=== PATIENT | female | born 1965 | race Caucasian/White ===

== ENCOUNTER 2017-07-14 22:42 | Emergency (ER) | payer SELFPAY ==
[2017-07-14] MEDS ORDERED: NA CHLORIDE 0.9% 1,000 ML ONE (23:13)
[2017-07-14] MEDS ORDERED: MORPHINE 4 MG/ML SYR ONE (23:13)
[2017-07-14] MEDS ORDERED: PROMETHAZINE 25 MG/ML VIAL ONE (23:14)
[2017-07-14 23:31] LABS: Absolute Lymphocytes (CBC) 1.3 K/uL (0.7-4.9); Absolute Monocytes 0.9 K/uL (0.1-1.3); Absolute Neutrophil 6.5 K/uL (1.8-8.0); Basophils % 0.7 % (0-1.3); Eosinophils % 0.1 % (0-4.4); Hematocrit 41.3 % (36.0-45.0); Lymphocytes % 14.5 % (15.3-44.8); MCV 93.3 fL (80-100); MPV 6.4 fL (7.6-11.3); RBC Red Blood Cell Count 4.43 M/uL (3.86-4.86)
[2017-07-14 23:52] LABS: Albumin 4.4 g/dL (3.2-5.5); Bilirubin Direct 0.1 mg/dL (0-0.2); Bilirubin Total 1.9 mg/dL (0.3-1.2)
[2017-07-15 00:04] LABS: Urine Blood 1+ (NEG); Urine Glucose NEGATIVE (NEG); Urine Protein 2+ (NEG); Urine Specific Gravity >1.030 (1.005-1.030); Urine pH 5.5 (5.0-7.0)
[2017-07-15 00:11] LABS: Urine Bacteria 20-50 /HPF (<20); Urine Culture Reflex Order REFLEXED; Urine RBC <5 /HPF (NONE SEEN)
--- NOTE | 2017-07-15 02:20 | ER ---
Nurse's Notes [facility] Name: Jaelyn Jean Age: 52 yrs Sex: Female : 1965 Arrival Date: 07/14/2017 Time: 22:46 Bed 26 Private MD: Diagnosis: Urinary tract infection, site not specified;Vomiting Presentation: 07/14 22:46 Presenting complaint: EMS states: Pt. arrived by EMS c/o N/V x 7 days, painful rk2 urination, little urine out put today. Pt. also c/o of bilateral flank pain. Transition of care: patient was not received from another setting of care. Onset of symptoms was July 14, 2017. Risk Assessment: Do you want to hurt yourself or someone else? Patient reports no desire to harm self or others. Initial Sepsis Screen: Does the patient meet any 2 criteria? HR > 90 bpm. No. Patient's initial sepsis screen is negative. Does the patient have a suspected source of infection? No. Patient's initial sepsis screen is negative. Initial Sepsis Screen: Does the patient have a suspected source of infection? Yes: No. Patient's initial sepsis screen is negative. Care prior to arrival: Medication(s) given: Normal saline infusion, Phenergan, 12.5 mg, IV initiated. 18 GA, in the right antecubital area. 22:46 Method Of Arrival: EMS: [facility] 22:46 Acuity: SHAQU[place] 3 rk2 Triage Assessment: 22:52 General: Appears in no apparent distress. well developed, well nourished, Behavior is rk2 calm, cooperative. Pain: Complains of pain in back. MANAGER EPIC: 07/15 01:19 unk rk2 Historical: - Allergies: 00:03 PENICILLINS; rk2 - PMHx: 07/14 22:52 PE; Pancreatitis; rk2 22:54 ENDOCARDITIS; Depression; DVT; rk2 - Social history:: Smoking status: Patient uses tobacco products, smokes one pack cigarettes per day. - Ebola Screening: : Patient negative for fever greater than or equal to 101.5 degrees Fahrenheit, and additional compatible Ebola Virus Disease symptoms. Screenin/28 00:02 Abuse screen: Denies threats or abuse. Nutritional screening: No deficits noted. rk2 Tuberculosis screening: No symptoms or risk factors identified. Fall Risk None identified. Assessment: 00:00 Reassessment: Patient appears in no apparent distress at this time. No changes from rk2 previously documented assessment. Patient and/or family updated on plan of care and expected duration. Pain level reassessed. No needs voiced \T\ this time. 01:18 Reassessment: Patient appears in no apparent distress at this time. No changes from rk2 previously documented assessment. Patient and/or family updated on plan of care and expected duration. Pain level reassessed. Pt. sleeping in room. No needs voiced. 02:45 Reassessment: Pt. was given water for PO challenge... per pt. she vomited water back rk2 up. Provider notified. 04:15 Reassessment: Patient is alert, oriented x 3, equal unlabored respirations, skin bb warm/dry/pink. pt verbalized understanding of and agrees to plan of care discharge instructions given pt assisted to exit via wheelchair awaiting ride home. Pt has not vomited since administration of Zofran. Vital Signs: 07/14 22:49 BP 143 / ???; Pulse 86; Resp 17; Temp 99.1(O); Pulse Ox 99% ; rk2 07/15 01:00 BP 102 / 62; Pulse 87; Resp 16; Pulse Ox 95% on R/A; rk2 01:40 BP 112 / 69; Pulse 88; Resp 16; Pulse Ox 95% on R/A; rk2 02:26 BP 117 / 75; Pulse 85; Resp 16; Pulse Ox 95% on R/A; rk2 04:17 BP 116 / 74; Pulse 85; Resp 16 S; Temp 97.9; Pulse Ox 96% on R/A; bb ED Course: 07/14 22:46 Patient arrived in ED. rk2 22:49 Triage completed. rk2 22:49 Arm band placed on. rk2 22:53 Lakesha Esqueda, FIONA is Primary Nurse. rk2 22:54 Ignacio Calero NP is PHCP. pm1 22:54 Juvencio Aguilar MD is Attending Physician. pm1 07/15 00:02 Patient has correct armband on for positive identification. Bed in low position. Call rk2 light in reach. Side rails up X2. 01:00 CT Abd/Pelvis - W/Contrast Sent. rk2 01:00 Urine Culture Sent. rk2 01:11 CT completed. Patient tolerated procedure well. Patient moved to CT via stretcher. Patient moved back from CT. 01:23 CT Abd/Pelvis - W/Contrast In Process Unspecified. EDMS 03:54 No provider procedures requiring assistance completed. bb 04:17 IV discontinued, intact, bleeding controlled, No redness/swelling at site. Pressure bb dressing applied. Administered Medications: 07/14 23:25 Drug: morphine 4 mg Route: IVP; Site: right antecubital; rk2 07/15 02:19 Follow up: Response: No adverse reaction rk2 07/14 23:26 Drug: NS 0.9% 1000 ml Route: IV; Rate: 1000 ml; Site: right antecubital; rk2 07/15 00:30 Follow up: Response: No adverse reaction; IV Status: Completed infusion rk2 07/14 23:26 Drug: Phenergan 12.5 mg Route: IVP; Site: right antecubital; rk2 07/15 02:19 Follow up: Response: No adverse reaction rk2 02:20 Not Given (cancelled by provider): NS 0.9% 1000 ml IV at 1000 ml once rk2 02:26 Drug: Rocephin 1 grams Route: IV; Rate: calculated rate; Site: right antecubital; rk2 02:33 Follow up: IV Status: Completed infusion; IV Intake: 10ml bb 02:35 Follow up: given \T\ DC rk2 02:39 CANCELLED (Duplicate Order): Rocephin 1 grams IV at calculated rate once; Given slow IV bb push per pharmacy instructions 03:07 Drug: Zofran 4 mg Route: IVP; Site: right antecubital; rk2 03:55 Follow up: Response: No adverse reaction bb 03:19 Not Given (Physician Discretion): morphine 4 mg IVP once bb Intake: 02:33 IV: 10ml; Total: 10ml. bb Outcome: 02:19 Discharge ordered by . pm1 04:17 Discharged to home via wheelchair. bb 04:17 Condition: stable 04:17 Discharge instructions given to patient, Instructed on discharge instructions, follow up and referral plans. medication usage, Demonstrated understanding of instructions, follow-up care, medications, Prescriptions given X 4. 04:19 Patient left the ED. bb Signatures: Dispatcher [employer] EDUT Trever Newton Rommel, Amrita, FIONA RN bb Ignacio Calero, DIRECTOR AUDIENCE MARKETING DIRECTOR AUDIENCE MARKETING pm1 Lakesha Esqueda RN RN rk2
--- NOTE | 2017-07-15 02:20 | EDPHYS ---
Physician Documentation [facility] Name: Jaelyn Jean Age: 52 yrs Sex: Female : 1965 Arrival Date: 07/14/2017 Time: 22:46 Bed 26 Private MD: ED Physician Juvencio Aguilar HPI: 07/15 00:00 This 52 yrs old Female presents to ER via EMS with complaints of pm1 Nausea/Vomiting, burning with urination. 00:00 The patient complains of pain in the left low back and right low back. The pain does pm1 not radiate. Onset: The symptoms/episode began/occurred 1 week(s) ago. Modifying factors: The symptoms are alleviated by nothing. the symptoms are aggravated by burning with urination. Associated signs and symptoms: Pertinent positives: nausea, vomiting, Pertinent negatives: fever. Severity of pain: in the emergency department the pain is actually worse. The patient has experienced a previous episode, many years ago. The patient has not recently seen a physician, and does not have an established primary care provider. Patient with burning with nausea and vomiting for 1 week. 3 days of burning with urination and flank pain bilaterally. no fevers. 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 - Ebola Screening: : Patient negative for fever greater than or equal to 101.5 degrees Fahrenheit, and additional compatible Ebola Virus Disease symptoms. ROS: 07/15 00:00 Constitutional: Negative for fever, chills, and weight loss, Eyes: Negative for injury, pm1 pain, redness, and discharge, ENT: Negative for injury, pain, and discharge, Neck: Negative for injury, pain, and swelling, Cardiovascular: Negative for chest pain, palpitations, and edema, Respiratory: Negative for shortness of breath, cough, wheezing, and pleuritic chest pain. : Negative for injury, bleeding, discharge, and swelling, MS/Extremity: Negative for injury and deformity, Skin: Negative for injury, rash, and discoloration, Neuro: Negative for headache, weakness, numbness, tingling, and seizure. Abdomen/GI: Positive for nausea and vomiting, Negative for abdominal pain, diarrhea. Back: Positive for flank pain, bilaterally. Exam: 00:00 Constitutional: This is a well developed, well nourished patient who is awake, alert, pm1 and in no acute distress. Head/Face: Normocephalic, atraumatic. Eyes: Pupils equal round and reactive to light, extra-ocular motions intact. Lids and lashes normal. Conjunctiva and sclera are non-icteric and not injected. Cornea within normal limits. Periorbital areas with no swelling, redness, or edema. ENT: Nares patent. No nasal discharge, no septal abnormalities noted. Tympanic membranes are normal and external auditory canals are clear. Oropharynx with no redness, swelling, or masses, exudates, or evidence of obstruction, uvula midline. Mucous membranes moist. Neck: Trachea midline, no thyromegaly or masses palpated, and no cervical lymphadenopathy. Supple, full range of motion without nuchal rigidity, or vertebral point tenderness. No Meningismus. Chest/axilla: Normal chest wall appearance and motion. Nontender with no deformity. No lesions are appreciated. Cardiovascular: Regular rate and rhythm with a normal S1 and S2. No gallops, murmurs, or rubs. Normal PMI, no JVD. No pulse deficits. Respiratory: Lungs have equal breath sounds bilaterally, clear to auscultation and percussion. No rales, rhonchi or wheezes noted. No increased work of breathing, no retractions or nasal flaring. 00:00 Skin: Warm, dry with normal turgor. Normal color with no rashes, no lesions, and no evidence of cellulitis. MS/ Extremity: Pulses equal, no cyanosis. Neurovascular intact. Full, normal range of motion. 00:00 Abdomen/GI: Inspection: abdomen appears normal, Bowel sounds: normal, Palpation: abdomen is soft and non-tender. 00:00 Back: CVA tenderness, that is mild, is noted bilaterally. 00:00 Neuro: Orientation: is normal, Motor: is normal, moves all fours. Vital Signs: 07/14 22:49 BP 143 / ???; Pulse 86; Resp 17; Temp 99.1(O); Pulse Ox 99% ; rk2 07/15 01:00 BP 102 / 62; Pulse 87; Resp 16; Pulse Ox 95% on R/A; rk2 01:40 BP 112 / 69; Pulse 88; Resp 16; Pulse Ox 95% on R/A; rk2 02:26 BP 117 / 75; Pulse 85; Resp 16; Pulse Ox 95% on R/A; rk2 04:17 BP 116 / 74; Pulse 85; Resp 16 S; Temp 97.9; Pulse Ox 96% on R/A; bb MDM: 07/14 22:55 Patient medically screened. pm1 07/15 02:10 Differential diagnosis: gastritis, pancreatitis, viral gastroenteritis, pyelonephritis, pm1 cystitis. 02:18 Data reviewed: vital signs. Counseling: I had a detailed discussion with the patient pm1 and/or guardian regarding: the historical points, exam findings, and any diagnostic results supporting the discharge/admit diagnosis, lab results, radiology results, the need for outpatient follow up, to return to the emergency department if symptoms worsen or persist or if there are any questions or concerns that arise at home. 07/14 23:11 Order name: Basic Metabolic Panel; Complete Time: 01: pm07/14 23:11 Order name: CBC with Diff; Complete Time: : pm07/14 23:11 Order name: Creatinine for Radiology; Complete Time: : pm07/14 23:11 Order name: Hepatic Function; Complete Time: : pm07/14 23:11 Order name: Lipase; Complete Time: 01: 07/14 23:11 Order name: Urine Microscopic Only; Complete Time: 01: 07/14 23:11 Order name: CT Abd/Pelvis - W/Contrast [facility] 07/14 23:36 Order name: Urine Dipstick--Ancillary (enter results); Complete Time: 01: [facility] 07/14 23:36 Order name: Urine --Ancillary (enter results); Complete Time: : [facility] 07/15 00:13 Order name: Urine Culture [facility] 07/14 23:11 Order name: Urine Test (obtain specimen); Complete Time: 23:26 pm07/14 23:11 Order name: IV Saline Lock; Complete Time: 23: pm07/14 23:11 Order name: Labs collected and sent; Complete Time: 23: pm07/14 23:11 Order name: Urine Dipstick-Ancillary (obtain specimen); Complete Time: 23:26 pm1 Administered Medications: 07/14 23:25 Drug: morphine 4 mg Route: IVP; Site: right antecubital; rk2 07/15 02:19 Follow up: Response: No adverse reaction rk2 07/14 23:26 Drug: NS 0.9% 1000 ml Route: IV; Rate: 1000 ml; Site: right antecubital; rk2 07/15 00:30 Follow up: Response: No adverse reaction; IV Status: Completed infusion rk2 07/14 23:26 Drug: Phenergan 12.5 mg Route: IVP; Site: right antecubital; rk2 07/15 02:19 Follow up: Response: No adverse reaction rk2 02:20 Not Given (cancelled by provider): NS 0.9% 1000 ml IV at 1000 ml once rk2 02:26 Drug: Rocephin 1 grams Route: IV; Rate: calculated rate; Site: right antecubital; rk2 02:33 Follow up: IV Status: Completed infusion; IV Intake: 10ml bb 02:35 Follow up: given \T\ DC rk2 02:39 CANCELLED (Duplicate Order): Rocephin 1 grams IV at calculated rate once; Given slow IV bb push per pharmacy instructions 03:07 Drug: Zofran 4 mg Route: IVP; Site: right antecubital; rk2 03:55 Follow up: Response: No adverse reaction bb 03:19 Not Given (Physician Discretion): morphine 4 mg IVP once bb Disposition: 07/15/17 02:19 Discharged to Home. Impression: Urinary tract infection, site not specified, Vomiting. - Condition is Stable. - Discharge Instructions: Nausea and Vomiting, Urinary Tract Infection. - Prescriptions for Tylenol- Codeine #3 300-30 mg Oral Tablet - take 2 tablets by ORAL route every 6 hours As needed; 20 tablet. Bactrim DS 800- 160 mg Oral Tablet - take 1 tablet by ORAL route every 12 hours for 10 days; 20 tablet. Zofran 4 mg Oral Tablet - take 1 tablet by ORAL route every 12 hours As needed; 20 tablet. Phenergan 25 mg Rectal Suppository - insert 1 suppository by RECTAL route every 6 hours As needed; 12 suppository. - Medication Reconciliation Form, Thank You Letter, Antibiotic Education form. - Follow up: Emergency Department; When: As needed; Reason: Worsening of condition. Follow up: Private Physician; When: 2 - 3 days; Reason: Recheck today's complaints, Continuance of care, Re-evaluation by your physician. - Problem is new. - Symptoms have improved. Addendum: 07/18/2017 09:03 Co-signature as Attending Physician, Juvencio Aguilar MD I agree with the assessment and w a plan of care. Signatures: Dispatcher [employer] EDMS Amrita Carney, RN RN bb Ignacio Calero, MICA MACHINE OPERATOR MICA MACHINE OPERATOR pm1 Juvencio Aguilar MD MD wa Kidder, Rhonda RN RN rk2 Corrections: (The following items were deleted from the chart) 07/15 02:39 02:39 Rocephin 1 grams IV at calculated rate once; Given slow IV push per pharmacy bb instructions ordered. bb 04:19 02:19 07/15/2017 02:19 Discharged to Home. Impression: Urinary tract infection, site bb not specified; Vomiting. Condition is Stable. Forms are Medication Reconciliation Form, Thank You Letter, Antibiotic Education, Prescription Opioid Use. Follow up: Emergency Department; When: As needed; Reason: Worsening of condition. Follow up: Private Physician; When: 2 - 3 days; Reason: Recheck today's complaints, Continuance of care, Re-evaluation by your physician. Problem is new. Symptoms have improved. pm1
[2017-07-15] MEDS ORDERED: CEFTRIAXONE/SWI 1gm 1 GM/10 ML SYR ONE (02:25)
[2017-07-15] MEDS ORDERED: ONDANSETRON 4 MG/2 ML VIAL ONE (03:05)
[2017-07-15 04:29] VITALS: BP 116/74; TEMP 97.9; O2SAT 96
--- NOTE | 2017-07-15 08:58 | RAD REPORT ---
EXAM DESCRIPTION: CT - Abdomen Pelvis W Contrast - 07/15/2017 3:16 am CLINICAL HISTORY: Bilateral flank pain, nausea, vomiting, dysuria, prior history of pancreatitis in DVT A preliminary written report was provided at the time of the study, and the report was reviewed prio r to final dictation. COMPARISON: CT November 2015 TECHNIQUE: Biphasic, helical CT imaging of the abdomen and pelvis was performed following 100 ml non -ionic IV contrast. No oral contrast given. All CT scans are performed using dose optimization technique as appropriate and may include automated exposure control or mA/KV adjustment according to patient size. FINDINGS: No suspicious findings in the lung bases. Liver shows diffuse fatty infiltration pattern no focal liver lesion. Spleen and pancreas show no hima picious findings. Gallbladder and biliary tree are also without suspicious finding. Gallstones can be occult. Symmetric renal function is seen with no hydronephrosis or suspicious renal mass. No pyelonephritis o r acute renal parenchymal process. No urinary bladder wall thickening or enhancement. Uterus and ovar ies show no suspicious findings. No adrenal abnormality. No dilated bowel loops or bowel wall thickening. No acute GI process seen. No free air, free fluid or inflammatory stranding. No hernia, mass or bulky lymphadenopathy. No suspicious bony findings. IMPRESSION: No pyelonephritis, obstructing calculus or acute finding identified. Diffuse fatty infiltration of the liver. No abnormality seen to explain the flank pain and dysuria symptoms.
== END 2017-07-15 04:19 | disposition home or self-care (01) ==
LOC: ER 22:42
DX: N39.0 Urinary tract infection, site not specified (principal); F17.210 Nicotine dependence, cigarettes, uncomplicated; Z88.0 Allergy status to penicillin
CPT/HCPCS: 36415; 74177; 80048; 80076; 81003; 81015; 81025; 83690; 85025; 87086; 87088; 96361; 96374; 96375; 99284; J0696; J2405; J2550; J7030; Q9967

== ENCOUNTER 2018-01-26 01:00 | Inpatient (IN) | payer BC, SELFPAY ==
[2018-01-26 01:49] LABS: Absolute Lymphocytes (CBC) 1.7 K/uL (0.7-4.9); Absolute Monocytes 0.9 K/uL (0.1-1.3); Basophils % 0.3 % (0-1.3); Eosinophils % 0.6 % (0-4.4); Hematocrit 44.4 % (36.0-45.0); MPV 6.6 fL (7.6-11.3); Monocytes % 10.7 % (3.3-12.3); RBC Red Blood Cell Count 4.49 M/uL (3.86-4.86)
[2018-01-26] MEDS ORDERED: KETOROLAC 30 MG/ML INJ ONE (01:51)
[2018-01-26] MEDS ORDERED: ONDANSETRON 4 MG/2 ML VIAL ONE ×2 (01:51→05:18)
[2018-01-26] MEDS ORDERED: NA CHLORIDE 0.9% 1,000 ML ONE ×2 (01:51→05:52)
[2018-01-26 02:06] LABS: Albumin 4.3 g/dL (3.4-5.0); Bilirubin Direct 0.3 mg/dL (0-0.2); Bilirubin Total 0.8 mg/dL (0.2-1.0); Potassium 4.2 mmol/L (3.5-5.1); Protein, Total 8.5 g/dL (6.4-8.2)
[2018-01-26] MEDS ORDERED: MORPHINE 4 MG/ML SYR ONE ×3 (02:28→05:52)
[2018-01-26] MEDS ORDERED: ACETAMINOPHEN 500 MG TAB PO PRN (05:48)
[2018-01-26 05:50] LABS: Urine Blood 2+ (NEG); Urine Glucose NEGATIVE (NEG); Urine Protein 2+ (NEG); Urine Specific Gravity 1.015 (1.005-1.030); Urine pH 5.5 (5.0-7.0)
[2018-01-26] MEDS ORDERED: NA CHLORIDE 0.9% 1,000 ML IV SCH (06:00)
--- NOTE | 2018-01-26 06:12 | ER ---
Nurse's Notes [facility] Name: Jaelyn Jean Age: 53 yrs Sex: Female : 1965 Arrival Date: 01/26/2018 Time: 01:04 Bed 20 Private MD: None, None Diagnosis: Acute pancreatitis Presentation: 01/26 01:19 Presenting complaint: Patient states: low back pain that radiates around abd w/N/V for aa1 past couple months and has progressively been getting worse. States, "I'm not sure what it is but I can tell that something isn't right.". Transition of care: patient was not received from another setting of care. Onset of symptoms was November 2017. Risk Assessment: Do you want to hurt yourself or someone else? Patient reports no desire to harm self or others. Initial Sepsis Screen: Does the patient meet any 2 criteria? HR > 90 bpm. Does the patient have a suspected source of infection? No. Patient's initial sepsis screen is negative. Care prior to arrival: None. 01:19 Method Of Arrival: Ambulatory aa1 01:19 Acuity: SHAQUILLE 3 aa1 Triage Assessment: 01:22 General: Appears in no apparent distress. uncomfortable, Behavior is calm, cooperative, aa1 appropriate for age. 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 - Social history:: Smoking status: Patient uses tobacco products, smokes one-half pack cigarettes per day. - Ebola Screening: : Patient denies exposure to infectious person Patient denies travel to an Ebola-affected area in the 21 days before illness onset. Screenin:30 Abuse screen: Denies threats or abuse. Nutritional screening: No deficits noted. jd3 Tuberculosis screening: No symptoms or risk factors identified. Fall Risk Ambulatory Aid- None/Bed Rest/Nurse Assist (0 pts). Gait- Normal/Bed Rest/Wheelchair (0 pts) Mental Status- Oriented to own ability (0 pts). Total Cutler Fall Scale indicates No Risk (0-24 pts). Assessment: 01:27 General: Appears in no apparent distress. uncomfortable, Behavior is cooperative, jd3 appropriate for age, anxious. Pain: Complains of pain in back and posterior aspect of left lateral abdomen Quality of pain is described as sharp, tender, Is continuous. Neuro: Level of Consciousness is awake, alert, obeys commands, Oriented to person, place, time, situation, Appropriate for age. Cardiovascular: Capillary refill < 3 seconds Patient's skin is warm and dry. Respiratory: Airway is patent Respiratory effort is even, unlabored, Respiratory pattern is regular, symmetrical. GI: Abdomen is round non-distended, Bowel sounds present X 4 quads. Abd is soft and non tender X 4 quads. Abdomen is tender to palpation in posterior aspect of right lateral abdomen and posterior aspect of left lateral abdomen Reports nausea, vomiting. : Reports burning with urination. EENT: No signs and/or symptoms were reported regarding the EENT system. Derm: Skin is intact, Skin is dry, Skin is normal, Skin temperature is warm. Musculoskeletal: Circulation, motion, and sensation intact. Range of motion: intact in all extremities. 02:13 Reassessment: Patient appears in no apparent distress at this time. Patient and/or jd3 family updated on plan of care and expected duration. Pain level reassessed. Patient is alert, oriented x 3, equal unlabored respirations, skin warm/dry/pink. 03:09 Reassessment: Patient appears in no apparent distress at this time. Patient and/or jd3 family updated on plan of care and expected duration. Pain level reassessed. Patient is alert, oriented x 3, equal unlabored respirations, skin warm/dry/pink. 04:32 Reassessment: Patient appears in no apparent distress at this time. Patient and/or jd3 family updated on plan of care and expected duration. Pain level reassessed. Patient is alert, oriented x 3, equal unlabored respirations, skin warm/dry/pink. 05:30 Reassessment: Patient appears in no apparent distress at this time. Patient and/or jd3 family updated on plan of care and expected duration. Pain level reassessed. Patient is alert, oriented x 3, equal unlabored respirations, skin warm/dry/pink. 06:47 Reassessment: Patient appears in no apparent distress at this time. Patient and/or jd3 family updated on plan of care and expected duration. Pain level reassessed. Patient is alert, oriented x 3, equal unlabored respirations, skin warm/dry/pink. 07:30 Reassessment: Patient appears in no apparent distress at this time. Patient and/or em family updated on plan of care and expected duration. Pain level reassessed. Patient is alert, oriented x 3, equal unlabored respirations, skin warm/dry/pink. Vital Signs: 01:22 BP 154 / 96; Pulse 126; Resp 18; Temp 98.3; Pulse Ox 97% on R/A; Weight 63.5 kg; Height aa1 5 ft. 1 in. (154.94 cm); Pain 8/10; 01:31 BP 134 / 88; Pulse 112; Resp 19 S; Pulse Ox 97% on R/A; jd3 02:14 BP 144 / 85; Pulse 92; Resp 18 S; Pulse Ox 98% on R/A; jd3 03:09 BP 115 / 74; Pulse 94; Resp 16 S; Pulse Ox 97% on R/A; jd3 04:32 BP 132 / 81; Pulse 81; Resp 16 S; Pulse Ox 96% on R/A; jd3 05:50 BP 124 / 75; Pulse 83; Resp 16 S; Pulse Ox 96% on R/A; jd3 06:47 BP 144 / 77; Pulse 82; Resp 17 S; Pulse Ox 95% on R/A; jd3 07:30 BP 137 / 82; Pulse 80; Resp 16; Pulse Ox 95% on R/A; Pain 7/10; em 01:22 Body Mass Index 26.45 (63.50 kg, 154.94 cm) aa1 ED Course: 01:04 Patient arrived in ED. dl4 01:04 None, None is Private Physician. dl4 01:21 Higinio Garza RN is Primary Nurse. jd3 01:22 Triage completed. aa1 01:23 Pascual Barillas MD is Attending Physician. ps1 01:30 Patient has correct armband on for positive identification. Bed in low position. Call jd3 light in reach. Side rails up X 1. 01:31 Arm band placed on. jd3 01:40 Inserted saline lock: 20 gauge in right forearm, using aseptic technique. Blood jd3 collected. 03:[address] via stretcher. kw1 03:18 CT Abd/Pelvis - W/Contrast In Process Unspecified. EDMS 03:20 CT completed. Patient tolerated procedure well. Patient moved back from CT. kw1 06:10 Pranay Simon MD is Hospitalizing Provider. ps1 06:48 No provider procedures requiring assistance completed. Patient admitted, IV remains in jd3 place. Administered Medications: 01:54 Drug: Zofran 4 mg Route: IVP; Site: right forearm; jd3 04:00 Follow up: Response: No adverse reaction jd3 01:54 Drug: TORadol 30 mg Route: IVP; Site: right forearm; jd3 04:00 Follow up: Response: No adverse reaction jd3 01:55 Drug: NS 0.9% 1000 ml Route: IV; Rate: 1 bolus; Site: right forearm; jd3 04:00 Follow up: Response: No adverse reaction; IV Status: Completed infusion; IV Intake: jd3 1000ml 02:23 Drug: morphine 4 mg Route: IVP; Site: right forearm; jd3 04:00 Follow up: Response: No adverse reaction jd3 04:00 Drug: morphine 4 mg Route: IVP; Site: right forearm; jd3 05:04 Follow up: Response: No adverse reaction jd3 05:15 Drug: Zofran 4 mg Route: IVP; Site: right forearm; jd3 05:50 Follow up: Response: No adverse reaction jd3 05:49 Drug: NS 0.9% 1000 ml Route: IV; Rate: 1 bolus; Site: right forearm; jd3 07:07 Follow up: IV Status: Completed infusion; IV Intake: 1000ml em 05:50 Drug: morphine 4 mg Route: IVP; Site: right forearm; jd3 06:47 Follow up: Response: No adverse reaction jd3 Intake: 04:00 IV: 1000ml; Total: 1000ml. jd3 07:07 IV: 1000ml; Total: 2000ml. em Outcome: 06:11 Decision to Hospitalize by Provider. ps1 08:09 Admitted to Med/surg accompanied by tech, via stretcher, room 210, with chart, Report em called to FIONA Whitehead 08:09 Condition: good 08:09 Instructed on the need for admit, Demonstrated understanding of instructions. 08:10 Patient left the ED. em Signatures: Dispatcher [employer] Lory Wilson RN RN aa1 Jose Loco LVN ASSEMBLER FOR PULLER OVER HAND Higinio Marlow RN RN jd3 Pascual Barillas MD MD ps1 Sarita Elliott kw1 Kade Toussaint dl4 Corrections: (The following items were deleted from the chart) 04:00 04:00 morphine 4 mg IVP in right antecubital yolanda guerrero
--- NOTE | 2018-01-26 06:12 | EDPHYS ---
Physician Documentation [facility] Name: Jaelyn Jean Age: 53 yrs Sex: Female : 1965 Arrival Date: 01/26/2018 Time: 01:04 Bed 20 Private MD: None, None ED Physician Pascual Barillas HPI: 01/26 04:49 This 53 yrs old Female presents to ER via Ambulatory with complaints of ps1 Abdominal Pain. 04:49 patient has a history of pancreatitis. Presenting with abdominal pain radiating to back ps1 and flanks. Onset was last couple of days. Pain rated as moderate. No remitting or exacerbating factors. . 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 - Social history:: Smoking status: Patient uses tobacco products, smokes one-half pack cigarettes per day. - Ebola Screening: : Patient denies exposure to infectious person Patient denies travel to an Ebola-affected area in the 21 days before illness onset. ROS: 04:52 Constitutional: Negative for fever, chills, and weight loss, Eyes: Negative for injury, ps1 pain, redness, and discharge, Cardiovascular: Negative for chest pain, palpitations, and edema, Respiratory: Negative for shortness of breath, cough, wheezing, and pleuritic chest pain, MS/Extremity: Negative for injury and deformity, Skin: Negative for injury, rash, and discoloration, Neuro: Negative for headache, weakness, numbness, tingling, and seizure. 04:52 Abdomen/GI: Positive for abdominal pain, nausea. Exam: 04:52 Constitutional: This is a well developed, well nourished patient who is awake, alert, ps1 and in no acute distress. Head/Face: Normocephalic, atraumatic. Eyes: Pupils equal round and reactive to light, extra-ocular motions intact. Lids and lashes normal. Conjunctiva and sclera are non-icteric and not injected. Chest/axilla: Normal chest wall appearance and motion. Nontender with no deformity. No lesions are appreciated. Cardiovascular: Regular rate and rhythm. No gallops, murmurs, or rubs. Normal PMI, no JVD. No pulse deficits. Respiratory: Lungs have equal breath sounds bilaterally, clear to auscultation and percussion. No rales, rhonchi or wheezes noted. No increased work of breathing, no retractions or nasal flaring. 04:52 MS/ Extremity: Pulses equal, no cyanosis. Neurovascular intact. Full, normal range of motion. Neuro: Awake and alert, GCS 15, oriented to person, place, time, and situation. Cranial nerves II-XII grossly intact. Sensory grossly intact. Psych: Awake, alert, with orientation to person, place and time. Behavior, mood, and affect are within normal limits. 04:52 Abdomen/GI: Inspection: abdomen appears normal, Bowel sounds: normal, Palpation: moderate abdominal tenderness, in the epigastric area. Vital Signs: 01:22 BP 154 / 96; Pulse 126; Resp 18; Temp 98.3; Pulse Ox 97% on R/A; Weight 63.5 kg; Height aa1 5 ft. 1 in. (154.94 cm); Pain 8/10; 01:31 BP 134 / 88; Pulse 112; Resp 19 S; Pulse Ox 97% on R/A; jd3 02:14 BP 144 / 85; Pulse 92; Resp 18 S; Pulse Ox 98% on R/A; jd3 03:09 BP 115 / 74; Pulse 94; Resp 16 S; Pulse Ox 97% on R/A; jd3 04:32 BP 132 / 81; Pulse 81; Resp 16 S; Pulse Ox 96% on R/A; jd3 05:50 BP 124 / 75; Pulse 83; Resp 16 S; Pulse Ox 96% on R/A; jd3 06:47 BP 144 / 77; Pulse 82; Resp 17 S; Pulse Ox 95% on R/A; jd3 07:30 BP 137 / 82; Pulse 80; Resp 16; Pulse Ox 95% on R/A; Pain 7/10; em 01:22 Body Mass Index 26.45 (63.50 kg, 154.94 cm) aa1 MDM: 02:03 Patient medically screened. ps1 04:52 Data reviewed: vital signs, nurses notes, lab test result(s), radiologic studies, and ps1 as a result, I will continue to observe the patient. 01/26 01:24 Order name: CBC with Diff; Complete Time: 02:03 ps1 01/26 01:24 Order name: Hepatic Function; Complete Time: 02:18 ps1 01/26 01:24 Order name: Lipase; Complete Time: 02:18 ps1 01/26 01:24 Order name: CMP; Complete Time: 02:18 ps1 01/26 05:13 Order name: Urine Dipstick--Ancillary (enter results); Complete Time: 05:56 ar5 01/26 05:52 Order name: CBC with Automated Diff EDMS 01/26 05:52 Order name: CBC with Automated Diff EDMS 01/26 05:52 Order name: Comprehensive Metabolic Panel EDMS 01/26 05:52 Order name: Comprehensive Metabolic Panel EDDE 01/26 05:52 Order name: Lipid Profile EDDE 01/26 05:52 Order name: CBC with Automated Diff EDMS 01/26 05:52 Order name: Comprehensive Metabolic Panel EDDE 01/26 01:25 Order name: CT Abd/Pelvis - W/Contrast [facility] 01/26 05:52 Order name: CONS Pharmacy Consult EDDE 01/26 05:52 Order name: CONS Physician Consult EDDE 01/26 05:52 Order name: Lipase EDDE 01/26 05:52 Order name: Magnesium EDMS 01/26 05:52 Order name: Phosphorus EDMS 01/26 05:53 Order name: Lipase EDMS 01/26 05:53 Order name: Lipase EDMS 01/26 01:24 Order name: IV Saline Lock; Complete Time: 01:39 ps1 01/26 01:24 Order name: Labs collected and sent; Complete Time: 01:39 ps1 01/26 01:24 Order name: NPO; Complete Time: 01:32 ps1 01/26 04:52 Order name: Urine Dipstick-Ancillary (obtain specimen); Complete Time: 05:15 ps1 01/26 05:52 Order name: NPO EDMS Administered Medications: 01:54 Drug: Zofran 4 mg Route: IVP; Site: right forearm; jd3 04:00 Follow up: Response: No adverse reaction jd3 01:54 Drug: TORadol 30 mg Route: IVP; Site: right forearm; jd3 04:00 Follow up: Response: No adverse reaction jd3 01:55 Drug: NS 0.9% 1000 ml Route: IV; Rate: 1 bolus; Site: right forearm; jd3 04:00 Follow up: Response: No adverse reaction; IV Status: Completed infusion; IV Intake: jd3 1000ml 02:23 Drug: morphine 4 mg Route: IVP; Site: right forearm; jd3 04:00 Follow up: Response: No adverse reaction jd3 04:00 Drug: morphine 4 mg Route: IVP; Site: right forearm; jd3 05:04 Follow up: Response: No adverse reaction jd3 05:15 Drug: Zofran 4 mg Route: IVP; Site: right forearm; jd3 05:50 Follow up: Response: No adverse reaction jd3 05:49 Drug: NS 0.9% 1000 ml Route: IV; Rate: 1 bolus; Site: right forearm; jd3 07:07 Follow up: IV Status: Completed infusion; IV Intake: 1000ml em 05:50 Drug: morphine 4 mg Route: IVP; Site: right forearm; jd3 06:47 Follow up: Response: No adverse reaction jd3 Disposition: 01/26/18 06:11 Hospitalization ordered by Pranay Simon for Inpatient Admission. Preliminary diagnosis is Acute pancreatitis. - Bed requested for Telemetry/MedSurg (Inpatient). - Status is Inpatient Admission. em - Condition is Fair. - Problem is an acute exacerbation. - Symptoms have worsened. UTI on Admission? No Signatures: Dispatcher [facility] Annamarie George RN RN dw Kern, Alissa, RN RN aa1 Jose Loco LVN HEAD GRINDER Higinio Marlow RN RN jd3 Pascual Barillas MD MD ps1 Corrections: (The following items were deleted from the chart) 04:52 04:49 patient has a history of pancreatitis. Presenting with abdominal pain radiating ps1 to back. . ps1 05:53 05:52 Lipid Profile ordered. EDDE EDMS 05:53 05:52 Lipid Profile ordered. [facility] EDDE 06:22 06:11 Hospitalization Ordered by Pranay Simon MD for Inpatient Admission. Preliminary dw diagnosis is Acute pancreatitis. Bed requested for Telemetry/MedSurg (Inpatient). Status is Inpatient Admission. Condition is Fair. Problem is an acute exacerbation. Symptoms have worsened. UTI on Admission? No. ps1 08:10 06:22 01/26/2018 06:11 Hospitalization Ordered by Pranay Simon MD for Inpatient em Admission. Preliminary diagnosis is Acute pancreatitis. Bed requested for Telemetry/MedSurg (Inpatient). Status is Inpatient Admission. Condition is Fair. Problem is an acute exacerbation. Symptoms have worsened. UTI on Admission? No. dw
[2018-01-26] MEDS: PANTOPRAZOLE 40MG TABLET PO SCH (06:30)
[2018-01-26 08:39] VITALS: BMI 26.4
[2018-01-26] MEDS: FLUOXETINE 20 MG CAP PO SCH (08:45)
[2018-01-26] MEDS: HYDROMORPHONE HCL 1 MG/ML INJ IV PRN ×4 (08:56→21:13)
[2018-01-26] MEDS: D5W 1,000 ML with NA BICARB 8.4% 100 MEQ IV SCH ×6 (10:12→20:40)
[2018-01-26] MEDS: LIPASE/PROTEASE/AMYLASE CAP PO SCH ×3 (11:23→21:14)
[2018-01-26 12:08] LABS: Absolute Lymphocytes (CBC) 1.4 K/uL (0.7-4.9); Absolute Monocytes 0.7 K/uL (0.1-1.3); Absolute Neutrophil 4.8 K/uL (1.8-8.0); Basophils % 0.3 % (0-1.3); Eosinophils % 0.4 % (0-4.4); Hematocrit 37.5 % (36.0-45.0); Lymphocytes % 20.7 % (15.3-44.8); MCH 34.3 pg (27.0-35.0); MCV 98.4 fL (80-100); MPV 6.6 fL (7.6-11.3); Monocytes % 9.7 % (3.3-12.3); RBC Red Blood Cell Count 3.81 M/uL (3.86-4.86)
--- NOTE | 2018-01-26 12:16 | RAD REPORT ---
EXAM DESCRIPTION: CTAbdomen Pelvis W Contrast - 01/26/2018 5:17 am CLINICAL HISTORY: Abdominal pain. ABD PAIN COMPARISON: Abdomen Pelvis W Contrast dated 07/15/2017; Abdomen Pelvis W Contrast dated 6 TECHNIQUE: Biphasic CT imaging of the abdomen and pelvis was performed with 100 ml non-ionic IV cont rast. All CT scans are performed using dose optimization technique as appropriate and may include automated exposure control or mA/KV adjustment according to patient size. FINDINGS: The lung bases are clear. Diffuse fatty infiltration is noted throughout the liver. The spleen, adrenal glands and kidneys are within normal limits. Fluid is seen around the pancreas. No bowel obstruction, free air, free fluid or abscess. The appendix is normal. No evidence of signi ficant lymphadenopathy. No suspicious bony findings. IMPRESSION: Fluid is present around the pancreas most compatible with acute pancreatitis. No pseudoc yst or abscess. Advanced fatty liver.
[2018-01-26 12:26] LABS: Albumin 3.2 g/dL (3.4-5.0); Bilirubin Total 0.6 mg/dL (0.2-1.0); Magnesium 1.7 mg/dL (1.8-2.4); Phosphorus 2.4 mg/dL (2.5-4.9); Protein, Total 6.4 g/dL (6.4-8.2)
--- NOTE | 2018-01-26 13:19 | P.HP ---
Certification for Inpatient Patient admitted to: Inpatient With expected LOS: >2 Midnights Patient will require the following post-hospital care: None Practitioner: I am a practitioner with admitting privileges, knowledge of patient current condition, hospital course, and medical plan of care. Services: Services provided to patient in accordance with Admission requirements found in Title 42 Section 412.3 of the Code of Federal Regulations Patient History Date of Service: 01/26/18 Reason for admission: Acute on chronic pancreatitis History of Present Illness: Patient is a 53-year-old female who was well known to me for many years. 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 She presented to the hospital with significant abdominal pain. She is going to a couple weeks ago and had a little bit to drink. Since then she states she is had a hard time dealing with her pain. She also has some nausea and vomiting. This progressed so she came into the emergency room. Her workup revealed acute pancreatitis. She also had a CT which confirmed pancreatitis. No other abnormalities. Currently patient is feeling a little bit better with IV fluids and pain medication. Will monitor her closely. Anticipate discharge home in 48-72 hr. 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 moist/pink, EOMI, Sclerae nonicteric Neck: Supple, 2+ carotid pulse no bruit, No LAD, Without JVD or thyroid abnormality Respiratory: Clear to auscultation bilaterally, Normal air movement Cardiovascular: Regular rate/rhythm, Normal S1 S2, No murmurs Gastrointestinal: Normal bowel sounds, Soft and benign, Non-distended, No tenderness Musculoskeletal: No clubbing, No swelling, No tenderness Integumentary: No rashes Neurological: Normal gait, Normal speech, Normal strength at 5/5 x4 extr, Normal tone, Sensation intact, Cranial nerves 3-12 intact, Normal affect Lymphatics: No axilla or inguinal lymphadenopathy - Studies Laboratory Data (last 24 hrs) 01/26/18 01:38: Sodium 132 L, Potassium 4.2, BUN 8, Creatinine 1.00, Glucose 77 , Total Bilirubin 0.8, AST 101 H, ALT 84 H, Alkaline Phosphatase 126 H, Lipase 4679 H 01/26/18 01:38: WBC 8.7, Hgb 15.3 H, Hct 44.4, Plt Count 295 Assessment & Plan - Problems (Diagnosis) (1) Acute on chronic pancreatitis Current Visit: Yes Status: Acute (2) Alcohol use Current Visit: Yes Status: Acute (3) Abdominal pain Onset Date: 12/05/15 Current Visit: No Status: Acute Qualifiers: Abdominal location: epigastric Qualified Code(s): R10.13 - Epigastric pain (4) Depression with anxiety Current Visit: No Status: Acute (5) Fatty liver Current Visit: No Status: Acute (6) UTI (urinary tract infection) Onset Date: 12/05/15 Current Visit: No Status: Acute - Plan 1. Continue with IV hydration 2. Monitor labs closely 3. Continue with pain control 4. NPO 5. GI consultation; may need CT or MRI to further evaluate if symptoms do not improve over the next 48-72 hr 6. Serial H&H, and we will monitor CBC, BMP, LFTs and lipase along with electrolytes. 7. GI and DVT prophylaxis Discharge Plan: Home Plan to discharge in: Greater than 2 days - Advance Directives Does patient have a Living Will: No Does patient have a Durable POA for Healthcare: No - Code Status/Comfort Care Code Status Assessed: Yes Code Status: Full Code Critical Care: No Time Spent Managing PTS Care (In Minutes): 50
--- NOTE | 2018-01-26 20:21 | RAD REPORT ---
EXAM DESCRIPTION: US - Abdomen Exam Complete - 01/26/2018 7:58 pm CLINICAL HISTORY: Abdominal pain. elevated LFTS COMPARISON: Abdomen Exam Limited dated 12/04/2015; Abdomen Pelvis W Contrast dated 01/26/2018 FINDINGS: Mild diffuse fatty liver is present. No focal liver lesions or intrahepatic biliary dilata tion is seen. The gallbladder demonstrates no gallstones, pericholecystic fluid or gallbladder wall thickening. Co mmon bile duct is normal in caliber measuring 5 millimeters. Both kidneys are normal in size, shape and echotexture. No hydronephrosis, focal lesion of concern or perinephric fluid. The spleen is normal in size measuring 7 cm. The pancreas and aorta are obscured by bowel gas. The visualized aspects of the IVC are grossly normal. IMPRESSION: Mild diffuse fatty liver.
[2018-01-26] MEDS: ONDANSETRON 4 MG/2 ML VIAL IV PRN (21:16)
[2018-01-27] MEDS: HYDROMORPHONE HCL 1 MG/ML INJ IV PRN ×3 (00:42→06:49)
[2018-01-27] MEDS: D5W 1,000 ML with NA BICARB 8.4% 100 MEQ IV SCH ×8 (00:48→18:46)
[2018-01-27 06:02] LABS: Absolute Lymphocytes (CBC) 1.1 K/uL (0.7-4.9); Absolute Monocytes 0.5 K/uL (0.1-1.3); Absolute Neutrophil 3.1 K/uL (1.8-8.0); Basophils % 0.4 % (0-1.3); Hematocrit 35.9 % (36.0-45.0); Lymphocytes % 23.5 % (15.3-44.8); MCH 34.2 pg (27.0-35.0); MCV 96.1 fL (80-100); MPV 6.9 fL (7.6-11.3); Monocytes % 10.8 % (3.3-12.3); RBC Red Blood Cell Count 3.74 M/uL (3.86-4.86)
[2018-01-27 06:46] LABS: Albumin 2.9 g/dL (3.4-5.0); Bilirubin Total 0.8 mg/dL (0.2-1.0); Protein, Total 5.9 g/dL (6.4-8.2)
[2018-01-27] MEDS: PANTOPRAZOLE 40MG TABLET PO SCH (06:49)
[2018-01-27 07:03] LABS: Potassium 2.8 mmol/L (3.5-5.1)
[2018-01-27] MEDS: KCL 20 MEQ/100 mL IVPB 20 MEQ/100 ML BAG IV SCH ×5 (07:26→21:24)
[2018-01-27] MEDS: LIPASE/PROTEASE/AMYLASE CAP PO SCH ×5 (07:30→21:23)
[2018-01-27] MEDS: ONDANSETRON 4 MG/2 ML VIAL IV PRN ×2 (08:25→16:01)
--- NOTE | 2018-01-27 10:00 | RAD REPORT ---
EXAM DESCRIPTION: MRI - Cholangiogram - 01/27/2018 9:23 am CLINICAL HISTORY: possible choledocholithiasis COMPARISON: Abdomen Pelvis W Contrast dated 01/26/2018; Abdomen Exam Complete dated 01/26/2018 FINDINGS: Three-dimensional MRCP was performed using maximum intensity projection reconstruction on the same work station. No intrahepatic biliary tree dilatation is seen. The common bile duct is normal caliber without evide nce of retained stone, stricture or mass. The pancreatic duct is not pathologically dilated. The gallbladder is unremarkable. T2 sequences through the abdomen demonstrate edematous appearance to the pancreas. No abscess seen. M ild free fluid is seen in the upper abdominal cavity. IMPRESSION: No significant biliary tree abnormality is discerned. Fluid and edema is seen throughout the pancreas compatible with acute pancreatitis.
[2018-01-27 10:05] LABS: Urine Appearance CLEAR; Urine Blood TRACE (NEG); Urine Color DK YELLOW; Urine Glucose NEGATIVE (NEG); Urine Protein NEGATIVE (NEG); Urine pH 6.5 (5.0-7.0)
[2018-01-27 10:13] LABS: Urine Bilirubin 2+ (NEG); Urine Microscopic Reflex ORDER UMIC
[2018-01-27] MEDS: TRAMADOL HCL 50 MG TAB PO PRN ×3 (10:16→23:34)
[2018-01-27] MEDS: FLUOXETINE 20 MG CAP PO SCH (10:17)
[2018-01-27 11:05] LABS: Urine Amorphous Sediment 3+ /HPF (NONE SEEN); Urine Bacteria <20 /HPF (<20); Urine Culture Reflex Order REFLEXED; Urine RBC <5 /HPF (NONE SEEN)
--- NOTE | 2018-01-27 12:56 | P.PN ---
Subjective Date of Service: 01/27/18 Chief Complaint: Acute on chronic pancreatitis Patient seen and examined at bedside with RN. Chart reviewed. Case discussed with GI. MRCP is good for today. No other complaints to offer. Review of Systems 10-point ROS is otherwise unremarkable Physical Examination - Vital Signs Temperature: 97.3 F Blood Pressure: 145/77 Pulse: 98 Respirations: 18 Pulse Ox (%): 95 - Physical Exam General: Alert, In no apparent distress HEENT: Atraumatic, PERRLA, EOMI Neck: Supple, JVD not distended Respiratory: Clear to auscultation bilaterally, Normal air movement Cardiovascular: Regular rate/rhythm, Normal S1 S2 Gastrointestinal: Normal bowel sounds, Tenderness Musculoskeletal: No tenderness Integumentary: No rashes Neurological: Normal speech, Normal tone, Normal affect Lymphatics: No axilla or inguinal lymphadenopathy - Studies Medications List Reviewed: Yes Assessment And Plan - Current Problems (Diagnosis) (1) Acute on chronic pancreatitis Onset Date: 01/27/18 Current Visit: Yes Status: Acute Plan: Acute on chronic pancreatitis most likely secondary to alcohol abuse -NPO, IV fluids, pain management at this time -MRCP is scheduled for this a.m. due to elevated LFTs to rule out any acute abnormality -the CT of the abdomen and abdominal ultrasound consistent with severe fatty infiltration along with acute pancreatitis no gallbladder abnormality noted -will continue with NPO and IV fluids at this (2) Alcohol use Onset Date: 01/27/18 Current Visit: Yes Status: Chronic (3) Depression with anxiety Current Visit: No Status: Chronic (4) Fatty liver Current Visit: No Status: Chronic (5) GERD (gastroesophageal reflux disease) Current Visit: No Status: Chronic Qualifiers: Esophagitis presence: without esophagitis Qualified Code(s): K21.9 - Gastro -esophageal reflux disease without esophagitis - Plan Patient is currently pending improvement. MRCP is pending at this time. GI has been consulted on the case. Lipase level is trending down. Patient abdominal pain getting better. If MRCP is negative will advance diet to a clear liquid diet and switch to oral pain medication. Patient educated extensively regarding alcohol abuse and to not use it at home. Patient demonstrated understanding. Will await results of MRCP Discharge Plan: Home Plan to discharge in: 48 Hours - Code Status/Comfort Care Code Status Assessed: Yes Critical Care: No
[2018-01-28] MEDS: D5W 1,000 ML with NA BICARB 8.4% 100 MEQ IV SCH ×4 (02:00→03:13)
[2018-01-28] MEDS ORDERED: TRAZODONE 50 MG TABLET PO ONE (03:32)
[2018-01-28] MEDS: PANTOPRAZOLE 40MG TABLET PO SCH (05:28)
[2018-01-28 06:00] LABS: Absolute Lymphocytes (CBC) 1.7 K/uL (0.7-4.9); Absolute Monocytes 0.4 K/uL (0.1-1.3); Absolute Neutrophil 2.4 K/uL (1.8-8.0); Basophils % 0.7 % (0-1.3); Eosinophils % 1.8 % (0-4.4); Hematocrit 34.5 % (36.0-45.0); Lymphocytes % 37.4 % (15.3-44.8); MCH 33.9 pg (27.0-35.0); MCV 96.5 fL (80-100); Monocytes % 8.9 % (3.3-12.3); RBC Red Blood Cell Count 3.57 M/uL (3.86-4.86)
[2018-01-28 06:08] LABS: ALT/SGPT 42 U/L (12-78); AST/SGOT 43 U/L (15-37); Albumin 2.9 g/dL (3.4-5.0); Alkaline Phosphatase 76 U/L (45-117); BUN Blood Urea Nitrogen 1 mg/dL (7-18); Bicarbonate 40 mmol/L (21-32); Bilirubin Total 0.6 mg/dL (0.2-1.0); Glucose Level 110 mg/dL (74-106); Lipase 952 U/L (73-393); Potassium 3.5 mmol/L (3.5-5.1); Sodium Level 140 mmol/L (136-145)
[2018-01-28] MEDS ORDERED: POTASSIUM CL SA 10 MEQ TAB PO ONE (06:22)
[2018-01-28] MEDS: TRAMADOL HCL 50 MG TAB PO PRN (07:14)
[2018-01-28] MEDS ORDERED: NACHLORIDE 0.45% 1,000 ML IV SCH (09:00)
[2018-01-28] MEDS: LIPASE/PROTEASE/AMYLASE CAP PO SCH ×4 (09:32→22:05)
[2018-01-28] MEDS: FLUOXETINE 20 MG CAP PO SCH (09:33)
[2018-01-28] MEDS: ONDANSETRON 4 MG/2 ML VIAL IV PRN ×3 (09:38→22:06)
[2018-01-28] MEDS ORDERED: Ringers Lactate 1,000 ML IV ONE (12:33)
[2018-01-28] MEDS: HYDROMORPHONE HCL 0.5 MG/0.5 ML INJ IV PRN ×3 (12:54→22:06)
--- NOTE | 2018-01-28 13:13 | P.PN ---
Subjective Date of Service: 01/28/18 Chief Complaint: Acute on chronic pancreatitis Subjective: Improving (Less pain, though still present. She reports feeling 60 % better. Lipase from ~ 4000 to ~ 1000 today.) Review of Systems 10-point ROS is otherwise unremarkable General: Weakness Gastrointestinal: Abdominal Pain (improving) Physical Examination - Vital Signs Temperature: 97.0 F Blood Pressure: 104/58 Pulse: 79 Respirations: 17 Pulse Ox (%): 95 - Physical Exam General: Alert, In no apparent distress, Oriented x3, Cooperative, Disheveled HEENT: Atraumatic, Normocephalic, PERRLA, EOMI Neck: Supple Respiratory: Normal air movement Gastrointestinal: No rebound, Tenderness, Guarding (mild) Neurological: Normal speech, Normal strength at 5/5 x4 extr - Studies Medications List Reviewed: Yes Assessment And Plan - Current Problems (Diagnosis) (1) Recurrent pancreatitis Current Visit: Yes Status: Acute Comment: Improving. (2) Epigastric abdominal pain Current Visit: Yes Status: Acute (3) Alcohol use Onset Date: 01/27/18 Current Visit: Yes Status: Chronic (4) Pancreatitis, acute Onset Date: 06/28/14 Current Visit: No Status: Acute (5) Depression with anxiety Current Visit: No Status: Chronic (6) Fatty liver Current Visit: No Status: Chronic (7) GERD (gastroesophageal reflux disease) Current Visit: No Status: Chronic Qualifiers: Esophagitis presence: without esophagitis Qualified Code(s): K21.9 - Gastro -esophageal reflux disease without esophagitis - Plan REC: 1) continue IVFs 2) ice chips / sips of water 3) monitor labs
[2018-01-28] MEDS: Ringers Lactate 1,000 ML IV SCH ×3 (13:30→20:10)
--- NOTE | 2018-01-28 17:51 | P.PN ---
Subjective Date of Service: 01/28/18 Primary Care Provider: None Chief Complaint: Acute on chronic pancreatitis Subjective: Improving (Abdominal pain improved. No significant nausea vomiting. Patient tolerating current diet) Physical Examination - Vital Signs Temperature: 97.3 F Blood Pressure: 128/64 Pulse: 88 Respirations: 17 Pulse Ox (%): 94 - Physical Exam General: Alert, In no apparent distress, Oriented x3, Cooperative HEENT: Atraumatic Neck: Supple Respiratory: Clear to auscultation bilaterally, Normal air movement Cardiovascular: Normal pulses, Regular rate/rhythm Gastrointestinal: Normal bowel sounds, Soft and benign, Non-distended, No tenderness, No masses, No rebound, No guarding Musculoskeletal: No erythema, No tenderness, No warmth - Studies Medications List Reviewed: Yes Assessment & Plan Discharge Plan: Home Plan to discharge in: 48 Hours Physician Review Additional Text: Impression: Acute on chronic recurrent pancreatitis likely from alcohol Fatty liver GERD Plan: Acute on chronic recurrent pancreatitis likely from alcohol: Patient improved. Will slowly advance diet. Anticipate discharge in the next 1-2 days. Will discuss case with GI. MRCP negative. Alcohol cessation addressed in detail. Patient plans to quit. Fatty liver: Will provide education. This can be further monitored closely by GI as an outpatient. GERD: Continue PPI. Time Spent Managing Pts Care (In Minutes): 55
[2018-01-29] MEDS: TRAMADOL HCL 50 MG TAB PO PRN (00:40)
[2018-01-29] MEDS: Ringers Lactate 1,000 ML IV SCH ×5 (00:40→23:56)
[2018-01-29] MEDS: HYDROMORPHONE HCL 0.5 MG/0.5 ML INJ IV PRN ×3 (02:16→11:56)
[2018-01-29] MEDS: PANTOPRAZOLE 40MG TABLET PO SCH (05:37)
[2018-01-29 06:34] LABS: Absolute Lymphocytes (CBC) 1.4 K/uL (0.7-4.9); Absolute Monocytes 0.4 K/uL (0.1-1.3); Absolute Neutrophil 2.5 K/uL (1.8-8.0); Basophils % 0.9 % (0-1.3); Eosinophils % 2.5 % (0-4.4); Hematocrit 33.7 % (36.0-45.0); Lymphocytes % 31.1 % (15.3-44.8); MCH 34.5 pg (27.0-35.0); MPV 8.5 fL (7.6-11.3); Monocytes % 8.8 % (3.3-12.3); RBC Red Blood Cell Count 3.44 M/uL (3.86-4.86)
[2018-01-29 07:29] LABS: ALT/SGPT 44 U/L (12-78); AST/SGOT 48 U/L (15-37); Alkaline Phosphatase 80 U/L (45-117); BUN Blood Urea Nitrogen 2 mg/dL (7-18); Bicarbonate 36 mmol/L (21-32); Bilirubin Total 0.4 mg/dL (0.2-1.0); Glucose Level 90 mg/dL (74-106); Lipase 595 U/L (73-393); Potassium 3.9 mmol/L (3.5-5.1); Protein, Total 6.2 g/dL (6.4-8.2); Sodium Level 142 mmol/L (136-145)
[2018-01-29] MEDS: LIPASE/PROTEASE/AMYLASE CAP PO SCH ×4 (07:30→19:24)
[2018-01-29] MEDS: FLUOXETINE 20 MG CAP PO SCH (08:44)
[2018-01-29] MEDS: ONDANSETRON 4 MG/2 ML VIAL IV PRN (11:56)
--- NOTE | 2018-01-29 14:56 | P.PN ---
Subjective Date of Service: 01/29/18 Primary Care Provider: None Chief Complaint: Acute on chronic pancreatitis Subjective: Improving (Pain improved.) Physical Examination - Vital Signs Temperature: 98.5 F Blood Pressure: 153/72 Pulse: 89 Respirations: 19 Pulse Ox (%): 92 - Physical Exam General: Alert, In no apparent distress, Oriented x3, Cooperative HEENT: Atraumatic Neck: Supple Respiratory: Clear to auscultation bilaterally, Normal air movement Cardiovascular: Normal pulses, Regular rate/rhythm Gastrointestinal: Normal bowel sounds, Soft and benign, Non-distended, No masses , No rebound, No guarding, Tenderness (pain improved) Musculoskeletal: No erythema, No tenderness, No warmth Integumentary: No erythema, No warmth, No cyanosis Neurological: Normal speech, Normal strength at 5/5 x4 extr, Normal tone, Normal affect - Studies Medications List Reviewed: Yes Assessment & Plan Discharge Plan: Home Plan to discharge in: 48 Hours Physician Review Additional Text: Impression: Acute on chronic recurrent pancreatitis likely from alcohol Fatty liver GERD Plan: Acute on chronic recurrent pancreatitis likely from alcohol: Patient improved. Pain significantly improved. Case discussed with GI. Will advance diet to clear liquids. If lipase significantly improved and tolerating clear liquid diet will consider adjusting her diet tomorrow with possible discharge. Continue with IV fluids. MRCP unremarkable. Anticipate discharge in the next 1 -2 days. Continue to address alcohol cessation. Increase ambulation. Fatty liver: Will provide education. This can be further monitored closely by GI as an outpatient. GERD: Continue PPI. Time Spent Managing Pts Care (In Minutes): 55
[2018-01-29] MEDS: HYDROCODONE/APAP 7.5/325 MG TAB PO PRN ×2 (16:10→22:25)
[2018-01-29 23:26] VITALS: O2SAT 95
[2018-01-30] MEDS: Ringers Lactate 1,000 ML IV SCH ×2 (04:33→12:10)
[2018-01-30] MEDS: PANTOPRAZOLE 40MG TABLET PO SCH (05:41)
[2018-01-30] MEDS: HYDROCODONE/APAP 7.5/325 MG TAB PO PRN (05:41)
[2018-01-30 05:58] LABS: Absolute Lymphocytes (CBC) 1.4 K/uL (0.7-4.9); Absolute Monocytes 0.4 K/uL (0.1-1.3); Absolute Neutrophil 1.9 K/uL (1.8-8.0); Basophils % 0.9 % (0-1.3); Eosinophils % 3.1 % (0-4.4); Hematocrit 35.6 % (36.0-45.0); Lymphocytes % 37.2 % (15.3-44.8); MCH 34.1 pg (27.0-35.0); MCV 98.3 fL (80-100); MPV 7.4 fL (7.6-11.3); Monocytes % 10.6 % (3.3-12.3); RBC Red Blood Cell Count 3.62 M/uL (3.86-4.86)
[2018-01-30 06:02] LABS: ALT/SGPT 42 U/L (12-78); AST/SGOT 38 U/L (15-37); Alkaline Phosphatase 82 U/L (45-117); BUN Blood Urea Nitrogen 4 mg/dL (7-18); Bicarbonate 31 mmol/L (21-32); Bilirubin Total 0.4 mg/dL (0.2-1.0); Glucose Level 80 mg/dL (74-106); Lipase 330 U/L (73-393); Potassium 3.6 mmol/L (3.5-5.1); Protein, Total 6.1 g/dL (6.4-8.2); Sodium Level 139 mmol/L (136-145)
[2018-01-30] MEDS ORDERED: POTASSIUM CL SA 10 MEQ TAB PO ONE (06:08)
[2018-01-30] MEDS: ONDANSETRON 4 MG/2 ML VIAL IV PRN (06:31)
[2018-01-30 08:54] VITALS: BP 122/66; TEMP 97
[2018-01-30] MEDS: FLUOXETINE 20 MG CAP PO SCH (09:19)
[2018-01-30] MEDS: LIPASE/PROTEASE/AMYLASE CAP PO SCH ×2 (09:19→12:37)
--- NOTE | 2018-01-30 10:10 | P.DS ---
Admission Date: 01/26/18 Discharge Date: 01/30/18 Primary Care Provider: None Disposition: ROUTINE DISCHARGE Discharge Condition: GOOD Reason for Admission: Acute on chronic pancreatitis Consultations: GI-Dr. Chang Procedures: CT scan: COMPARISON: Abdomen Pelvis W Contrast dated 07/15/2017; Abdomen Pelvis W Contrast dated 12/04/2015 TECHNIQUE: Biphasic CT imaging of the abdomen and pelvis was performed with 100 ml non-ionic IV contrast. All CT scans are performed using dose optimization technique as appropriate and may include automated exposure control or mA/KV adjustment according to patient size. FINDINGS: The lung bases are clear. Diffuse fatty infiltration is noted throughout the liver. The spleen, adrenal glands and kidneys are within normal limits. Fluid is seen around the pancreas. No bowel obstruction, free air, free fluid or abscess. The appendix is normal. No evidence of significant lymphadenopathy. No suspicious bony findings. IMPRESSION: Fluid is present around the pancreas most compatible with acute pancreatitis. No pseudocyst or abscess. Advanced fatty liver. ABUS: COMPARISON: Abdomen Exam Limited dated 12/04/2015; Abdomen Pelvis W Contrast dated 01/26/2018 FINDINGS: Mild diffuse fatty liver is present. No focal liver lesions or intrahepatic biliary dilatation is seen. The gallbladder demonstrates no gallstones, pericholecystic fluid or gallbladder wall thickening. Common bile duct is normal in caliber measuring 5 millimeters. Both kidneys are normal in size, shape and echotexture. No hydronephrosis, focal lesion of concern or perinephric fluid. The spleen is normal in size measuring 7 cm. The pancreas and aorta are obscured by bowel gas. The visualized aspects of the IVC are grossly normal. IMPRESSION: Mild diffuse fatty liver. MRCP: COMPARISON: Abdomen Pelvis W Contrast dated 01/26/2018; Abdomen Exam Complete dated 01/26/2018 FINDINGS: Three-dimensional MRCP was performed using maximum intensity projection reconstruction on the same work station. No intrahepatic biliary tree dilatation is seen. The common bile duct is normal caliber without evidence of retained stone, stricture or mass. The pancreatic duct is not pathologically dilated. The gallbladder is unremarkable. T2 sequences through the abdomen demonstrate edematous appearance to the pancreas. No abscess seen. Mild free fluid is seen in the upper abdominal cavity. IMPRESSION: No significant biliary tree abnormality is discerned. Fluid and edema is seen throughout the pancreas compatible with acute pancreatitis Medical problem list: Acute on chronic recurrent pancreatitis likely from alcohol Fatty liver GERD Hyperlipidemia Depression Brief History of Present Illness: 53-year-old female presented to the emergency room with abdominal pain , nausea and vomiting. Patient found to have acute pancreatitis. Patient was admitted for treatment. Hospital Course: Patient presented with acute on chronic pancreatitis. This is likely recurrent as she had an episode in the past. Patient also admitted to alcohol use. Patient had MRCP, abdominal ultrasound, and CT scan. All showed evidence of acute pancreatitis. No biliary obstruction was identified. Patient was seen and evaluated by GI. No further intervention was required. Patient did well in her stay. Patient received IV fluids and slowly advanced with her diet. At discharge she is without any significant abdominal pain, nausea and vomiting. She has tolerated her diet. At discharge she will continue with GI soft diet. At discharge she will continue with Creon 1 capsule with meals. Alcohol cessation addressed in detail. She is to limit fatty products in her diet. Recommendations for the patient follow up with GI as an outpatient within 2-4 weeks to monitor her progress and follow up this hospitalization. Limited supply of tramadol 50 mg 1 pill 3 times a day as needed for pain will be provided. Patient found to have fatty liver. Lifestyle modification education will be provided. Education on fatty liver will be provided. Recommendation is for the patient follow up with GI as an outpatient to further address. Patient with GERD. Prilosec has been discontinued. Patient will continue with Protonix 40 mg 1 pill once daily. Further evaluation can be done by GI as an outpatient. Patient has hyperlipidemia. Total triglycerides 246, LDL 49. Lifestyle modification education is recommended at this time. Recommendation to recheck lab-fasting lipid panel in 4-6 weeks. If still significantly abnormal then the patient may require medication in the future. This can be further addressed by her PCP. Patient has depression. Patient will continue with Prozac 1 pill daily. Vital Signs/Physical Exam: Temp Pulse Resp BP Pulse Ox 97 F 88 16 122/66 96 01/30/18 08:00 01/30/18 08:00 01/30/18 08:00 01/30/18 08:00 01/30/18 08:00 General: Alert, In no apparent distress, Oriented x3, Cooperative HEENT: Atraumatic, Normocephalic, Mucous membr. moist/pink Neck: Supple, No Thyromegaly Respiratory: Clear to auscultation bilaterally, Normal air movement Cardiovascular: Normal pulses, Regular rate/rhythm Gastrointestinal: Normal bowel sounds, Soft and benign, Non-distended, No tenderness, No masses, No rebound, No guarding Musculoskeletal: No erythema, No tenderness, No warmth Integumentary: No tenderness/swelling, No erythema, No warmth, No cyanosis Neurological: Normal speech, Normal strength at 5/5 x4 extr, Normal tone, Normal affect Laboratory Data at Discharge: WBC 3.9 K/uL (4.3-10.9) L 01/30/18 05:14 Hgb 12.4 g/dL (12.0-15.0) 01/30/18 05:14 Hct 35.6 % (36.0-45.0) L 01/30/18 05:14 Plt Count 217 K/uL (152-406) 01/30/18 05:14 Sodium 139 mmol/L (136-145) 01/30/18 05:14 Potassium 3.6 mmol/L (3.5-5.1) 01/30/18 05:14 BUN 4 mg/dL (7-18) L 01/30/18 05:14 Creatinine 0.50 mg/dL (0.55-1.3) L 01/30/18 05:14 Glucose 80 mg/dL (74-106) 01/30/18 05:14 Phosphorus 2.4 mg/dL (2.5-4.9) L 01/26/18 11:26 Magnesium 1.7 mg/dL (1.8-2.4) L 01/26/18 11:26 Total Bilirubin 0.4 mg/dL (0.2-1.0) 01/30/18 05:14 AST 38 U/L (15-37) H 01/30/18 05:14 ALT 42 U/L (12-78) 01/30/18 05:14 Alkaline Phosphatase 82 U/L (45-117) 01/30/18 05:14 Triglycerides 246 mg/dL (<150) H 01/26/18 11:26 Cholesterol 249 mg/dL (<200) H 01/26/18 11:26 HDL Cholesterol 51 mg/dL (40-60) 01/26/18 11:26 Cholesterol/HDL Ratio 4.88 01/26/18 11:26 Lipase 330 U/L (73-393) 01/30/18 05:14 Home Medications: Fluoxetine HCl [Prozac*] 20 mg PO DAILY 03/01/13 Lipase/Protease/Amylase [Creon Dr 12,000 Units Capsule] 1 cap PO ACHS #90 cap Pantoprazole [Protonix Tab*] 40 mg PO DAILYAC #30 tab 01/30/18 traMADol HCL [Ultram*] 50 mg PO TID PRN #10 tab 01/30/18 New Medications: Lipase/Protease/Amylase [Creon Dr 12,000 Units Capsule] 1 cap PO ACHS #90 cap Pantoprazole [Protonix Tab*] 40 mg PO DAILYAC #30 tab traMADol HCL [Ultram*] 50 mg PO TID PRN #10 tab PRN Reason: Pain Patient Discharge Instructions: 1. Patient will need follow up with a PCP in 1 week to follow up this hospitalization. 2. Patient presented with acute on chronic pancreatitis. This is likely recurrent as she had an episode in the past. Patient also admitted to alcohol use. Patient had MRCP, abdominal ultrasound, and CT scan. All showed evidence of acute pancreatitis. No biliary obstruction was identified. Patient was seen and evaluated by GI. No further intervention was required. Patient did well in her stay. Patient received IV fluids and slowly advanced with her diet. At discharge she is without any significant abdominal pain, nausea and vomiting. She has tolerated her diet. At discharge she will continue with GI soft diet. At discharge she will continue with Creon 1 capsule with meals. Alcohol cessation addressed in detail. She is to limit fatty products in her diet. Recommendations for the patient follow up with GI as an outpatient within 2-4 weeks to monitor her progress and follow up this hospitalization. Limited supply of tramadol 50 mg 1 pill 3 times a day as needed for pain will be provided. 3. Patient found to have fatty liver. Lifestyle modification education will be provided. Education on fatty liver will be provided. Recommendation is for the patient follow up with GI as an outpatient to further address. 4. Patient with GERD. Prilosec has been discontinued. Patient will continue with Protonix 40 mg 1 pill once daily. Further evaluation can be done by GI as an outpatient. 5. Patient has hyperlipidemia. Total triglycerides 246, LDL 49. Lifestyle modification education is recommended at this time. Recommendation to recheck lab-fasting lipid panel in 4-6 weeks. If still significantly abnormal then the patient may require medication in the future. This can be further addressed by her PCP. 6. Patient has depression. Patient will continue with Prozac 1 pill daily. Diet: GI soft low fat diet Activity: Ad poornima Time spent managing pt's care (in minutes): 55
--- NOTE | 2018-01-30 12:24 | P.PN ---
Subjective Date of Service: 01/30/18 Primary Care Provider: None Chief Complaint: Acute on chronic pancreatitis Subjective: Improving (No abdominal pain now. Tolerated food this AM.) Review of Systems Unremarkable Physical Examination - Vital Signs Temperature: 97 F Blood Pressure: 122/66 Pulse: 88 Respirations: 16 Pulse Ox (%): 96 - Physical Exam General: Alert, In no apparent distress, Oriented x3, Cooperative HEENT: Atraumatic, Normocephalic, PERRLA, EOMI Neck: Supple Respiratory: Normal air movement Cardiovascular: Normal pulses Gastrointestinal: Soft and benign, No tenderness, No rebound, No guarding Neurological: Normal speech, Normal strength at 5/5 x4 extr - Studies Medications List Reviewed: Yes Assessment And Plan - Current Problems (Diagnosis) (1) Recurrent pancreatitis Current Visit: Yes Status: Acute Comment: Improving. (2) Epigastric abdominal pain Current Visit: Yes Status: Acute Comment: None now. (3) Alcohol use Onset Date: 01/27/18 Current Visit: Yes Status: Chronic (4) Pancreatitis, acute Onset Date: 06/28/14 Current Visit: No Status: Acute (5) Depression with anxiety Current Visit: No Status: Chronic (6) Fatty liver Current Visit: No Status: Chronic (7) GERD (gastroesophageal reflux disease) Current Visit: No Status: Chronic Qualifiers: Esophagitis presence: without esophagitis Qualified Code(s): K21.9 - Gastro -esophageal reflux disease without esophagitis - Plan REC: 1) okay to discharge 2) liquids to low fat / low cholesterol diet 3) GI clinic f/u in 1-2 weeks Physician Review Additional Text: Impression: Acute on chronic recurrent pancreatitis likely from alcohol Fatty liver GERD Plan: Acute on chronic recurrent pancreatitis likely from alcohol: Patient improved. Pain significantly improved. Case discussed with GI. Will advance diet to clear liquids. If lipase significantly improved and tolerating clear liquid diet will consider adjusting her diet tomorrow with possible discharge. Continue with IV fluids. MRCP unremarkable. Anticipate discharge in the next 1 -2 days. Continue to address alcohol cessation. Increase ambulation. Fatty liver: Will provide education. This can be further monitored closely by GI as an outpatient. GERD: Continue PPI.
== END 2018-01-30 13:37 | disposition home or self-care (01) | DRG 440 ==
LOC: ER 01:00 → ERHOLD 05:53 → 2ND 07:48
PROVIDERS: ADMIT Hospitalist; ATTEND Family Medicine
DX: K85.20 Alcohol induced acute pancreatitis without necrosis or infection (principal); K86.0 Alcohol-induced chronic pancreatitis; K76.0 Fatty (change of) liver, not elsewhere classified; K21.9 Gastro-esophageal reflux disease without esophagitis; E78.5 Hyperlipidemia, unspecified; F32.9 Major depressive disorder, single episode, unspecified; Z88.0 Allergy status to penicillin; F17.210 Nicotine dependence, cigarettes, uncomplicated; F10.10 Alcohol abuse, uncomplicated
CPT/HCPCS: 36415; 74177; 74181; 76700; 80053; 80061; 80076; 81003; 81015; 83690; 83735; 84100; 84132; 85025; 87086; 87088; 96361; 96374; 96375; 99285; J1170; J2405; J7030; Q9967

== ENCOUNTER 2018-02-02 01:26 | Observation (INO) | payer BC ==
[2018-02-02] MEDS ORDERED: NA CHLORIDE 0.9% 1,000 ML ONE (02:10)
[2018-02-02] MEDS ORDERED: KETOROLAC 30 MG/ML INJ ONE (02:11)
[2018-02-02 02:22] LABS: Absolute Lymphocytes (CBC) 1.9 K/uL (0.7-4.9); Absolute Monocytes 0.8 K/uL (0.1-1.3); Absolute Neutrophil 4.6 K/uL (1.8-8.0); Basophils % 0.5 % (0-1.3); Eosinophils % 0.3 % (0-4.4); Hematocrit 43.6 % (36.0-45.0); Lymphocytes % 26.1 % (15.3-44.8); MCH 34.2 pg (27.0-35.0); MCV 97.4 fL (80-100); MPV 6.4 fL (7.6-11.3); Monocytes % 11.2 % (3.3-12.3); RBC Red Blood Cell Count 4.47 M/uL (3.86-4.86)
[2018-02-02 02:45] LABS: ALT/SGPT 64 U/L (12-78); AST/SGOT 97 U/L (15-37); Albumin 3.7 g/dL (3.4-5.0); Alkaline Phosphatase 113 U/L (45-117); BUN Blood Urea Nitrogen 10 mg/dL (7-18); Bicarbonate 17 mmol/L (21-32); Bilirubin Direct 0.2 mg/dL (0-0.2); Bilirubin Total 0.4 mg/dL (0.2-1.0); Lipase 153 U/L (73-393); Protein, Total 7.8 g/dL (6.4-8.2); Sodium Level 135 mmol/L (136-145); Troponin I < 0.02 ng/mL (0.0-0.045)
[2018-02-02 02:46] LABS: Glucose Level 49 mg/dL (74-106); Potassium 2.9 mmol/L (3.5-5.1)
--- NOTE | 2018-02-02 02:59 | ER ---
Nurse's Notes [facility] Name: Jaelyn Jean Age: 53 yrs Sex: Female : 1965 Arrival Date: 02/02/2018 Time: :34 Bed 20 Private MD: Diagnosis: Hypokalemia;Hypoglycemia, unspecified Presentation: 02/02 01:25 Presenting complaint: EMS states: acid reflux, respiratory distress, weakness, chest cc3 discomfort radiating to left shoulder since when she was discharged from hospitalization. Transition of care: patient was not received from another setting of care. Onset of symptoms was January 30, 2018. Risk Assessment: Do you want to hurt yourself or someone else? Patient reports no desire to harm self or others. Initial Sepsis Screen: Does the patient meet any 2 criteria? No. Patient's initial sepsis screen is negative. Does the patient have a suspected source of infection? No. Patient's initial sepsis screen is negative. Care prior to arrival: Medication(s) given: zofran 4 mg. 01:25 Method Of Arrival: EMS: [facility] cc3 01:25 Acuity: SHAQUILLE 3 cc3 Triage Assessment: 01:25 General: Appears in no apparent distress. comfortable, Behavior is calm, cooperative, cc3 appropriate for age. Pain: Complains of pain in chest discomfort. EENT: No signs and/or symptoms were reported regarding the EENT system. Neuro: Level of Consciousness is awake, alert, obeys commands, Oriented to person, place, time, situation, Appropriate for age. Cardiovascular: Reports chest pain, since . Respiratory: Airway is patent Respiratory effort is even, unlabored, Respiratory pattern is regular, symmetrical. GI: Abdomen is round non-distended. : No signs and/or symptoms were reported regarding the genitourinary system. Derm: No signs and/or symptoms reported regarding the dermatologic system. Musculoskeletal: Circulation, motion, and sensation intact. Range of motion: intact in all extremities. 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 - Social history:: Smoking status: Patient/guardian denies using tobacco, but has a distant history of tobacco abuse, Patient/guardian denies using alcohol, street drugs, The patient lives with family. - Ebola Screening: : No symptoms or risks identified at this time. - Family history:: not pertinent. - Hospitalizations: : No recent hospitalization is reported. Screenin:25 Abuse screen: Denies threats or abuse. Denies injuries from another. Nutritional cc3 screening: No deficits noted. Tuberculosis screening: No symptoms or risk factors identified. Fall Risk Ambulatory Aid- None/Bed Rest/Nurse Assist (0 pts). Gait- Normal/Bed Rest/Wheelchair (0 pts) Mental Status- Oriented to own ability (0 pts). Assessment: 01:25 General: see triage assessment. cc3 02:30 Reassessment: Patient appears in no apparent distress at this time. Patient and/or cc3 family updated on plan of care and expected duration. Pain level reassessed. Patient is alert, oriented x 3, equal unlabored respirations, skin warm/dry/pink. 03:00 Reassessment: Patient for admission, awaiting admission orders. cc3 03:20 Reassessment: Patient appears in no apparent distress at this time. Patient and/or cc3 family updated on plan of care and expected duration. Pain level reassessed. Patient is alert, oriented x 3, equal unlabored respirations, skin warm/dry/pink. 04:45 Reassessment: Patient appears in no apparent distress at this time. Patient and/or cc3 family updated on plan of care and expected duration. Pain level reassessed. Patient is alert, oriented x 3, equal unlabored respirations, skin warm/dry/pink. 05:35 Reassessment: Patient appears in no apparent distress at this time. Patient and/or cc3 family updated on plan of care and expected duration. Pain level reassessed. Patient is alert, oriented x 3, equal unlabored respirations, skin warm/dry/pink. Result of CT scan chest is now available with result of no evidence of pulmonary embolism, Dr. Gutierrez said the patient can now go for admission in the [facility]. Called for report but was told that the receiving nurse will just call me back. 05:48 Reassessment: blood glucose reading of 32 mg/dL, informed Dr. Gutierrez and new order was cc3 made and carried out, gave more juice and food to the patient as well. 06:19 Reassessment: Patient appears in no apparent distress at this time. Patient and/or cc3 family updated on plan of care and expected duration. Pain level reassessed. Patient is alert, oriented x 3, equal unlabored respirations, skin warm/dry/pink. blood sugar reading of 204 mg/dL; report handed over to RN Valeria Crawford for continuity of care. 06:25 Reassessment: Patient left ER for admission vitally stable by stretcher escorted by ED cc3 arianne Brock. Vital Signs: 01:25 BP 150 / 87; Pulse 98; Resp 19 S; Temp 98.5(O); Pulse Ox 98% on R/A; Weight 61.23 kg cc3 (R); Height 5 ft. 1 in. (154.94 cm) (R); 02:00 BP 129 / 88; Pulse 103; Resp 18; Pulse Ox 96% on 1 lpm NC; cc3 03:15 BP 130 / 74; Pulse 85; Resp 17 S; Pulse Ox 98% on 1 lpm NC; cc3 04:45 BP 128 / 73; Pulse 101; Resp 17 S; Pulse Ox 98% on 1 lpm NC; cc3 05:45 BP 125 / 75; Pulse 86; Resp 19 S; Pulse Ox 100% on 1 lpm NC; cc3 06:15 BP 137 / 74; Pulse 84; Resp 16 S; Pulse Ox 100% on 1 lpm NC; cc3 01:25 Body Mass Index 25.51 (61.23 kg, 154.94 cm) cc3 ED Course: 01:25 Arm band placed on right wrist. cc3 01:25 Patient has correct armband on for positive identification. Bed in low position. Call cc3 light in reach. Side rails up X 1. 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 Pulse ox on. NIBP on. 01:25 Maintain EMS IV. Dressing intact. Good blood return noted. Site clean \T\ dry. Gauge \T\ cc 3 site: gauge 20 right ACV. 01:34 Patient arrived in ED. al2 01:34 Catherine Major is Primary Nurse. cc3 01:39 Triage completed. cc3 01:47 Pranay Gutierrez MD is Attending Physician. ma2 02:21 X-ray completed. Portable x-ray completed in exam room. Patient tolerated procedure sg4 well. 02:46 Notified ED physician of a critical lab result(s). potassium of 2.9, glucose 49. fc 02:57 Jethro Hanna MD is Hospitalizing Provider. ma2 03:09 Notified ED physician of a critical lab result(s). d dimer 823. fc 03:[address] via stretcher. kw1 03:54 CT Chest For PE Angio In Process Unspecified. EDMS 03:56 CT completed. Patient tolerated procedure well. Patient moved back from CT. kw1 05:30 No provider procedures requiring assistance completed. Patient admitted, IV remains in cc3 place. 05:50 IV discontinued, intact, bleeding controlled, No redness/swelling at site. Pressure cc3 dressing applied. 06:00 Inserted saline lock: 20 gauge in left antecubital area, using aseptic technique. cc3 Administered Medications: 02:05 Drug: NS 0.9% 1000 ml Route: IV; Rate: 1 bolus; Site: right antecubital; cc3 03:00 Follow up: Response: No adverse reaction; IV Status: Completed infusion; IV Intake: cc3 1000ml 02:10 Drug: TORadol 30 mg Route: IVP; Site: right antecubital; cc3 03:00 Follow up: Response: No adverse reaction; Pain is unchanged, physician notified cc3 03:08 Not Given (changed to 20 meq): Potassium Chloride 10 mEq IV at calculated rate once; administer over 1-2 hours 03:10 Drug: morphine 4 mg Route: IVP; Site: right antecubital; cc3 04:00 Follow up: Response: No adverse reaction; Pain is decreased cc3 03:13 Drug: Zofran 4 mg Route: IVP; Site: right antecubital; cc3 03:30 Follow up: Response: No adverse reaction; Nausea is decreased cc3 03:16 Drug: D50W 50 ml Route: IVP; Site: right antecubital; cc3 03:30 Follow up: Response: No adverse reaction cc3 03:25 Drug: Potassium Chloride 20 mEq Route: IV; Rate: calculated rate; Site: right cc3 antecubital; 05:30 Follow up: Response: No adverse reaction; IV Status: Infusion continued upon admission cc3 05:10 Drug: NS 0.9% 500 ml Route: IV; Rate: bolus; Site: right antecubital; cc3 06:00 Follow up: Response: No adverse reaction; IV Status: Infusion continued upon admission cc3 06:00 Drug: D50W 50 ml Route: IVP; Site: left antecubital; cc3 06:19 Follow up: Response: No adverse reaction; Blood sugar is elevated cc3 Point of Care Testing: Blood Glucose: 05:48 Blood Glucose: 32 mg/dL; cc3 06:19 Blood Glucose: 204 mg/dL; cc3 Ranges: Intake: 03:00 IV: 1000ml; Total: 1000ml. cc3 Outcome: 02:58 Decision to Hospitalize by Provider. ma2 05:45 Admitted to Tele accompanied by tech, via stretcher, room 404, with oxygen, with chart, cc3 Report called to FIONA Crawford 05:45 Condition: stable 05:45 Instructed on the need for admit, Demonstrated understanding of instructions. 06:26 Patient left the ED. cc3 Signatures: Dispatcher [employer] EDMS Yolanda Ortiz RN RN fc Wilhelm, Kimberly kw1 Rhea Garg2 Pranay Gutierrez MD MD ma2 Cordel, Charlene cc3 Chanelle Hartley4 Corrections: (The following items were deleted from the chart) 06:13 04:45 Pulse 101bpm; Resp 17bpm; Spontaneous; Pulse Ox 98% 1 lpm Nasal Cannula; cc3 cc3 07:07 06:19 Reassessment: Patient appears in no apparent distress at this time. Patient cc3 and/or family updated on plan of care and expected duration. Pain level reassessed. Patient is alert, oriented x 3, equal unlabored respirations, skin warm/dry/pink. cc3
--- NOTE | 2018-02-02 02:59 | EDPHYS ---
Physician Documentation [facility] Name: Jaelyn Jean Age: 53 yrs Sex: Female : 1965 Arrival Date: 02/02/2018 Time: 01:34 Bed 20 Private MD: ED Physician Pranay Gutierrez HPI: 02/02 02:08 This 53 yrs old Female presents to ER via EMS with complaints of acid reflux, ma2 Chest Pain. 02:08 The patient or guardian reports chest pain that is located primarily in the anterior ma2 chest wall, left, chest diffusely. 02:09 Onset: gradually, 1 day(s) ago. The pain does not radiate. Associated signs and ma2 symptoms: Pertinent positives: None. Pertinent negatives:. The chest pain is described as dull. Duration: The patient or guardian reports multiple episodes. Severity of pain: At its worst the pain was moderate in the emergency department the pain is unchanged. 02:10 was discharged 2 days ago with pancreatitis here with chest pain x 1 day intermittent, ma2 also feels dehydrated not drinking or eating. STABLE HAND: 01:25 LMP 10 years ago as per patient cc3 Historical: - Allergies: 01:25 PENICILLINS; cc3 - Home Meds: 01:25 Prozac 20 mg Oral cap 1 cap once daily [Active]; cc3 - PMHx: 01:25 Depression; DVT; ENDOCARDITIS; Gastric Reflux; Pancreatitis; PE; Pneumonia; cc3 - Immunization history:: Adult Immunizations up to date. - Social history:: Smoking status: Patient/guardian denies using tobacco, but has a distant history of tobacco abuse, Patient/guardian denies using alcohol, street drugs, The patient lives with family. - Ebola Screening: : No symptoms or risks identified at this time. - Family history:: not pertinent. - Hospitalizations: : No recent hospitalization is reported. ROS: 02:10 Constitutional: Negative for fever, chills, and weight loss, ENT: Negative for injury, ma2 pain, and discharge, Neck: Negative for injury, pain, and swelling, Respiratory: Negative for shortness of breath, cough, wheezing, and pleuritic chest pain, Abdomen/GI: Negative for abdominal pain, nausea, diarrhea, and constipation, Back: Negative for injury and pain, Neuro: Negative for headache, weakness, numbness, tingling, and seizure, Psych: Negative for depression, anxiety, suicide ideation, homicidal ideation, and hallucinations, Allergy/Immunology: Negative for hives, rash, and allergies. 02:10 Cardiovascular: Positive for chest pain, Negative for edema, orthopnea, palpitations, paroxysmal nocturnal dyspnea. 02:10 All other systems are negative. Exam: 02:10 Constitutional: This is a well developed, well nourished patient who is awake, alert, ma2 and in no acute distress. Chest/axilla: Normal chest wall appearance and motion. Nontender with no deformity. No lesions are appreciated. Cardiovascular: Regular rate and rhythm with a normal S1 and S2. No gallops, murmurs, or rubs. Normal PMI, no JVD. No pulse deficits. Respiratory: Lungs have equal breath sounds bilaterally, clear to auscultation and percussion. No rales, rhonchi or wheezes noted. No increased work of breathing, no retractions or nasal flaring. Abdomen/GI: Soft, non-tender, with normal bowel sounds. No distension or tympany. No guarding or rebound. No evidence of tenderness throughout. MS/ Extremity: Pulses equal, no cyanosis. Neurovascular intact. Full, normal range of motion. Neuro: Awake and alert, GCS 15, oriented to person, place, time, and situation. Cranial nerves II-XII grossly intact. Motor strength 5/5 in all extremities. Sensory grossly intact. Cerebellar exam normal. Normal gait. Vital Signs: 01:25 BP 150 / 87; Pulse 98; Resp 19 S; Temp 98.5(O); Pulse Ox 98% on R/A; Weight 61.23 kg cc3 (R); Height 5 ft. 1 in. (154.94 cm) (R); 02:00 BP 129 / 88; Pulse 103; Resp 18; Pulse Ox 96% on 1 lpm NC; cc3 03:15 BP 130 / 74; Pulse 85; Resp 17 S; Pulse Ox 98% on 1 lpm NC; cc3 04:45 BP 128 / 73; Pulse 101; Resp 17 S; Pulse Ox 98% on 1 lpm NC; cc3 05:45 BP 125 / 75; Pulse 86; Resp 19 S; Pulse Ox 100% on 1 lpm NC; cc3 06:15 BP 137 / 74; Pulse 84; Resp 16 S; Pulse Ox 100% on 1 lpm NC; cc3 01:25 Body Mass Index 25.51 (61.23 kg, 154.94 cm) cc3 MDM: 01:49 Patient medically screened. ne2 02:10 Differential diagnosis: anxiety, chest wall pain, gastroesophageal reflux disease ma2 (GERD), pancreatitis, pulmonary embolus. HEART Score: History: Slightly Suspicious (0), ECG: Normal (0), Age: < or = 45 years (0), Risk Factors: No Risk Factors Known (0), Troponin: < or = 1 x Normal Limit (0). VIRI Risk Score: not applicable. 02:56 Data reviewed: vital signs, nurses notes, lab test result(s), EKG. Counseling: I had a [facility] detailed discussion with the patient and/or guardian regarding: the historical points, exam findings, and any diagnostic results supporting the discharge/admit diagnosis, the presence of at least one elevated blood pressure reading (>120/80) during this emergency department visit, the need for further work-up and treatment in the hospital. 02:59 ED course: discussed with dr. birmingham. [facility] 02/02 01:58 Order name: Basic Metabolic Panel [facility] 02/02 01:58 Order name: CBC with Diff [facility] 02/02 01:58 Order name: Creatinine for Radiology [facility] 02/02 01:58 Order name: Hepatic Function [facility] 02/02 01:58 Order name: Lipase [facility] 02/02 02:09 Order name: D-Dimer; Complete Time: 03:10 [facility] 02/02 02:09 Order name: Troponin I [facility] 02/02 02:23 Order name: CBC with Automated Diff; Complete Time: 02:45 EDMS 02/02 02:38 Order name: Creatinine (Radiology Only); Complete Time: 02:45 EDMS 02/02 02:46 Order name: Basic Metabolic Panel; Complete Time: 02:47 EDMS 02/02 02:46 Order name: Liver (Hepatic) Function; Complete Time: 02:47 EDMS 02/02 02:46 Order name: Troponin I; Complete Time: 02:47 EDMS 02/02 02:46 Order name: Lipase; Complete Time: 02:47 EDMS 02/02 05:23 Order name: Urine Dipstick--Ancillary (enter results) [facility] 02/02 01:58 Order name: IV Saline Lock; Complete Time: 02:21 [facility] 02/02 01:58 Order name: Labs collected and sent; Complete Time: 02:21 [facility] 02/02 02:09 Order name: Chest Single View XRAY [facility] 02/02 02:13 Order name: EKG - Nurse/Tech; Complete Time: 02:57 [facility] 02/02 03:11 Order name: CT Chest For PE Angio [facility] 02/02 05:25 Order name: Urine Dipstick-Ancillary EDMS Administered Medications: 02:05 Drug: NS 0.9% 1000 ml Route: IV; Rate: 1 bolus; Site: right antecubital; cc3 03:00 Follow up: Response: No adverse reaction; IV Status: Completed infusion; IV Intake: cc3 1000ml 02:10 Drug: TORadol 30 mg Route: IVP; Site: right antecubital; cc3 03:00 Follow up: Response: No adverse reaction; Pain is unchanged, physician notified cc3 03:08 Not Given (changed to 20 meq): Potassium Chloride 10 mEq IV at calculated rate once; fc administer over 1-2 hours 03:10 Drug: morphine 4 mg Route: IVP; Site: right antecubital; cc3 04:00 Follow up: Response: No adverse reaction; Pain is decreased cc3 03:13 Drug: Zofran 4 mg Route: IVP; Site: right antecubital; cc3 03:30 Follow up: Response: No adverse reaction; Nausea is decreased cc3 03:16 Drug: D50W 50 ml Route: IVP; Site: right antecubital; cc3 03:30 Follow up: Response: No adverse reaction cc3 03:25 Drug: Potassium Chloride 20 mEq Route: IV; Rate: calculated rate; Site: right cc3 antecubital; 05:30 Follow up: Response: No adverse reaction; IV Status: Infusion continued upon admission cc3 05:10 Drug: NS 0.9% 500 ml Route: IV; Rate: bolus; Site: right antecubital; cc3 06:00 Follow up: Response: No adverse reaction; IV Status: Infusion continued upon admission cc3 06:00 Drug: D50W 50 ml Route: IVP; Site: left antecubital; cc3 06:19 Follow up: Response: No adverse reaction; Blood sugar is elevated cc3 Point of Care Testing: Blood Glucose: 05:48 Blood Glucose: 32 mg/dL; cc3 06:19 Blood Glucose: 204 mg/dL; cc3 Ranges: Critical Glucose Levels:Adult <50 mg/dl or >400 mg/dl <40 mg/dl or >180 mg/dl Disposition: 02/02/18 02:58 Hospitalization ordered by Jethro Birmingham for Observation. Preliminary diagnosis are Hypokalemia, Hypoglycemia, unspecified. - Bed requested for Telemetry/MedSurg (observation). - Status is Observation. cc3 - Condition is Stable. - Problem is an acute exacerbation. - Symptoms are unchanged. UTI on Admission? No Signatures: Dispatcher [employer] EDSarita Ramirez RN RN Yolanda Ulloa RN RN fc Alzahri, Mohammad, MD MD [facility] Catherine Major cc3 Corrections: (The following items were deleted from the chart) 04:58 02:58 Hospitalization Ordered by Jethro Birmingham MD for Observation. Preliminary kl diagnosis is Hypokalemia; Hypoglycemia, unspecified. Bed requested for Telemetry/MedSurg (observation). Status is Observation. Condition is Stable. Problem is an acute exacerbation. Symptoms are unchanged. UTI on Admission? No. ma2 06:26 04:58 02/02/2018 02:58 Hospitalization Ordered by Jethro Birmingham MD for Observation. cc3 Preliminary diagnosis is Hypokalemia; Hypoglycemia, unspecified. Bed requested for Telemetry/MedSurg (observation). Status is Observation. Condition is Stable. Problem is an acute exacerbation. Symptoms are unchanged. UTI on Admission? No. kl
[2018-02-02] MEDS ORDERED: MORPHINE 4 MG/ML SYR ONE (03:14)
[2018-02-02] MEDS ORDERED: ONDANSETRON 4 MG/2 ML VIAL ONE (03:15)
[2018-02-02] MEDS ORDERED: D50W 25 GM/50 ML SYRINGE IV ONE ×3 (03:15→12:16)
[2018-02-02] MEDS ORDERED: KCL 20 MEQ/100 mL IVPB 20 MEQ/100 ML BAG IV ONE (03:20)
--- NOTE | 2018-02-02 04:13 | P.HP ---
Certification for Inpatient Patient admitted to: Observation With expected LOS: <2 Midnights Practitioner: I am a practitioner with admitting privileges, knowledge of patient current condition, hospital course, and medical plan of care. Services: Services provided to patient in accordance with Admission requirements found in Title 42 Section 412.3 of the Code of Federal Regulations Patient History Date of Service: 02/02/18 Reason for admission: chest pain History of Present Illness: Ms Jean is a 53 years old woman with history of Depression, DVT/PE, endocarditis, who was recently admitted to this facility due to acute on chronic pancreatitis, and discharged 3 days ago. She states that was feeling very weak since discharge. Last night, the patient suddenly start with SOB lasting for almos 1 minute. It was associated with chest pain and palpitations. She describe the pain as stubbing, substernal area. No fever or chills. Lab work remarkable for normal WBC count, D-dimer 823, glucose 47, hypokalemia 2.9. EKG shows SR at 70's bpm, with T wave inversion and aterior leads, similar to previous EKG. Trop I negative. 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 moist/pink, EOMI, Sclerae nonicteric Neck: Supple, 2+ carotid pulse no bruit, No LAD, Without JVD or thyroid abnormality Respiratory: Clear to auscultation bilaterally, Normal air movement Cardiovascular: Regular rate/rhythm, Normal S1 S2 Gastrointestinal: Normal bowel sounds, No tenderness Musculoskeletal: No tenderness Integumentary: No rashes Neurological: Normal gait, Normal speech, Normal strength at 5/5 x4 extr, Normal tone, Normal affect Lymphatics: No axilla or inguinal lymphadenopathy - Studies Laboratory Data (last 24 hrs) 02/02/18 02:09: Troponin I Cancelled 02/02/18 02:00: Creatinine 0.60 02/02/18 02:00: WBC 7.4 D, Hgb 15.3 H D, Hct 43.6 D, Plt Count 440 H D 02/02/18 02:00: Sodium 135 L, Potassium 2.9 L*, BUN 10, Creatinine 0.60, Glucose 49 L*, Total Bilirubin 0.4, AST 97 H, ALT 64, Alkaline Phosphatase 113, Troponin I < 0.02, Lipase 153 Assessment and Plan - Problems (Diagnosis) (1) Chest pain Current Visit: Yes Status: Acute Qualifiers: Chest pain type: precordial pain Qualified Code(s): R07.2 - Precordial pain (2) Dyspnea Current Visit: Yes Status: Acute Qualifiers: Dyspnea type: shortness of breath Qualified Code(s): R06.02 - Shortness of breath; R06.00 - Dyspnea, unspecified; R06.01 - Orthopnea (3) Hypokalemia Current Visit: No Status: Acute - Plan The patient will be admitted to the hospital due to chest pain. EKG shows no acute changes, Trop I negative will order serial cardiac enzymes and EKG. Her D- dimer was elevated, CTA chest shows no PE, however, awaiting radiology report. - Advance Directives Does patient have a Living Will: No Does patient have a Durable POA for Healthcare: No - Code Status/Comfort Care Code Status Assessed: Yes Code Status: Full Code
[2018-02-02] MEDS ORDERED: NA CHLORIDE 0.9% 500 ML ONE (05:17)
[2018-02-02 05:25] LABS: Urine Blood 2+ (NEG); Urine Glucose NEGATIVE (NEG); Urine Protein NEGATIVE (NEG); Urine pH 5.5 (5.0-7.0)
[2018-02-02] MEDS ORDERED: NA CHLORIDE 0.9% 1,000 ML IV SCH (06:30)
[2018-02-02] MEDS ORDERED: ACETAMINOPHEN 500 MG TAB PO PRN (06:30)
--- NOTE | 2018-02-02 07:02 | RAD REPORT ---
EXAM DESCRIPTION: Tory Single View02/02/2018 2:24 am CLINICAL HISTORY: Chest pain COMPARISON: 2016 FINDINGS: The lungs appear clear of acute infiltrate. The heart is normal size IMPRESSION: No acute abnormalities displayed
--- NOTE | 2018-02-02 07:02 | RAD REPORT ---
EXAM DESCRIPTION: CT - Chest For Pe Angio - 02/02/2018 6:29 am CLINICAL HISTORY: Chest pain COMPARISON: 2013 TECHNIQUE: Dynamically enhanced axial 3 mm thick images of the chest were obtained during administra tion of <100> mL Isovue 370 IV contrast. Coronal and oblique reconstruction images were generated and reviewed. Exam utilizes a protocol for optimal evaluation of pulmonary arterial tree.Preliminary rep ort generated by virtual radiologic and reviewed prior to dictation Maximum intensity projections 3D imaging was utilized All CT scans are performed using dose optimization technique as appropriate and may include automated exposure control or mA/KV adjustment according to patient size. FINDINGS: A pulmonary embolus is not seen. A thoracic aortic aneurysm is not noted. A pleural effusion is not seen. A pericardial effusion is not seen. 2 x 0.7 centimeter ground-glass opacities left upper lobe 16 millimeter right thyroid nodule unchanged. Liver has diminished attenuation consistent with fatty infiltration. There additional ill-defined low density areas within the left lobe probably representing an additional fatty infiltration. Inflammat ion neoplasm can also have this appearance but is less likely. This could be further evaluated with MRI A small hiatal hernia. Thickening of the wall of the distal esophagus may indicate inflammation IMPRESSION: Negative for a pulmonary embolism. Small ground-glass opacities left upper lobe may represent an area of pneumonitis or infection
[2018-02-02] MEDS ORDERED: BENZONATATE 100 MG CAP PO PRN (07:34)
[2018-02-02] MEDS: ENOXAPARIN 40 MG/0.4 ML SQ SCH (08:04)
[2018-02-02] MEDS: ONDANSETRON 4 MG/2 ML VIAL IV PRN (08:04)
[2018-02-02] MEDS: Levofloxacin500mg IV 500 MG/100 ML BAG IV SCH (08:04)
[2018-02-02] MEDS: FLUOXETINE 20 MG CAP PO SCH (08:05)
[2018-02-02] MEDS: PANTOPRAZOLE 40MG TABLET PO SCH (08:05)
[2018-02-02] MEDS: TRAMADOL HCL 50 MG TAB PO PRN (08:06)
[2018-02-02] MEDS: GUAIFENESIN 600 MG SA TAB PO SCH ×2 (08:06→20:43)
[2018-02-02 08:38] VITALS: BMI 26.6
[2018-02-02] MEDS: LIPASE/PROTEASE/AMYLASE CAP PO SCH ×4 (08:52→20:43)
[2018-02-02 08:59] LABS: BUN Blood Urea Nitrogen 9 mg/dL (7-18); Bicarbonate 20 mmol/L (21-32); Glucose Level 60 mg/dL (74-106); Potassium 3.3 mmol/L (3.5-5.1); Sodium Level 136 mmol/L (136-145)
[2018-02-02 09:00] LABS: Magnesium 1.4 mg/dL (1.8-2.4)
--- NOTE | 2018-02-02 09:31 | P.PN ---
Subjective Date of Service: 02/02/18 Chief Complaint: chest pain Subjective: Improving (Patient with mild cough) Physical Examination - Vital Signs Temperature: 97.9 F Blood Pressure: 117/59 Pulse: 79 Respirations: 18 Pulse Ox (%): 92 - Physical Exam General: Alert, In no apparent distress, Oriented x3, Cooperative HEENT: Atraumatic Neck: Supple Respiratory: Clear to auscultation bilaterally, Normal air movement Cardiovascular: Normal pulses, Regular rate/rhythm Gastrointestinal: Normal bowel sounds, Soft and benign, Non-distended, No ascites, No tenderness, No masses, No rebound, No guarding Musculoskeletal: No erythema, No tenderness, No warmth Integumentary: No tenderness/swelling, No erythema, No warmth, No cyanosis Neurological: Normal speech, Normal strength at 5/5 x4 extr, Normal tone, Normal affect - Studies Laboratory Data (last 24 hrs) 02/02/18 02:09: Troponin I Cancelled 02/02/18 02:00: Creatinine 0.60 02/02/18 02:00: WBC 7.4 D, Hgb 15.3 H D, Hct 43.6 D, Plt Count 440 H D 02/02/18 02:00: Sodium 135 L, Potassium 2.9 L*, BUN 10, Creatinine 0.60, Glucose 49 L*, Total Bilirubin 0.4, AST 97 H, ALT 64, Alkaline Phosphatase 113, Troponin I < 0.02, Lipase 153 Medications List Reviewed: Yes Assessment & Plan Discharge Plan: Home Plan to discharge in: 24 Hours Physician Review Additional Text: Impression: Left upper lobe pneumonia with dehydration, hypokalemia, hypoglycemia and poor oral intake Fatty liver GERD Hyperlipidemia Depression Recent hospitalization for acute on chronic pancreatitis Plan: Left upper lobe pneumonia with dehydration, hypokalemia, hypoglycemia and poor oral intake: CT scan reviewed. No pulmonary embolism. Left upper lobe pneumonia noted. Patient started on antibiotic therapy. Continue to hydrate with IV fluids. Will replace potassium. Encourage oral intake. Encourage incentive spirometer. Encourage ambulation. Will provide medication for cough and congestion. Will recheck lab again today. If significantly improved patient can be discharged as early as today if not tomorrow. Fatty liver: Continue with lifestyle modification education. GERD: Will provide PPI Hyperlipidemia: Will review and restart home medication Depression: Will review and restart home medication Recent hospitalization for acute on chronic pancreatitis: Lipase unremarkable. Will continue with Creon. Patient without any significant abdominal pain. No nausea or vomiting noted. Encourage oral intake. Time Spent Managing Pts Care (In Minutes): 55
[2018-02-02] MEDS ORDERED: POTASSIUM CL SA 10 MEQ TAB PO ONE ×2 (10:00→19:00)
[2018-02-02] MEDS: D5 0.9 NS 1,000 ML IV SCH ×2 (10:37→20:43)
[2018-02-02] MEDS: KETOROLAC 30 MG/ML INJ IV PRN ×2 (10:49→17:28)
[2018-02-02] MEDS ORDERED: Magnesium Sulfate 2gm IVPB 2 G/50 ML BAG IV ONE (11:00)
--- NOTE | 2018-02-02 11:31 | EKG ---
Test Date: 2018-02-02 Test Time: 02:48:57 Director Safety: PHILL MEASUREMENT RESULTS: Intervals: Rate: 88 SC: 134 QRSD: 78 QT: 418 QTc: 505 [place]: P: 50 SC: 134 QRS: 17 T: 18 INTERPRETIVE STATEMENTS: Normal sinus rhythm Possible Left atrial enlargement T wave abnormality, consider anterolateral ischemia Prolonged QT Abnormal ECG Compared to ECG 12/04/2015 01:41:33 no significant change from previous ECG Electronically Signed On 02-02-18 11:30:48 [employer]IO COMMUNICATIONS SUPERINTENDENT by Alberto Fernandes
[2018-02-02] MEDS: PROMETHAZINE 25 MG/ML VIAL IV PRN (12:22)
[2018-02-02 13:39] LABS: CKMB Creatine Kinase MB < 1.0 ng/mL (0.3-3.6); Troponin I < 0.02 ng/mL (0.0-0.045)
[2018-02-02] MEDS ORDERED: INFLUENZA VACCINE (for 3y+) 0.5 ML DOSE IMVAC ONE (15:00)
[2018-02-02 17:56] LABS: Magnesium 2.3 mg/dL (1.8-2.4); Potassium 3.9 mmol/L (3.5-5.1)
--- NOTE | 2018-02-02 18:43 | EKG ---
Test Date: 2018-02-02 Test Time: 11:53:55 Eeg Tech: Sophia BHARDWAJ MEASUREMENT RESULTS: Intervals: Rate: 98 [place]: 124 QRSD: 74 QT: 398 QTc: 508 [place]: P: 70 [place]: 124 QRS: 27 T: 75 INTERPRETIVE STATEMENTS: Normal sinus rhythm T wave abnormality, consider anterior ischemia Prolonged QT Abnormal ECG Compared to ECG 02/02/2018 02:48:57 No significant changes Electronically Signed On 02-02-18 18:42:42 CASK MAKER by Alberto Fernandes
[2018-02-02] MEDS: NICOTINE 21 MG/PAT TD SCH (21:52)
[2018-02-03] MEDS: PROMETHAZINE 25 MG/ML VIAL IV PRN (00:31)
[2018-02-03] MEDS: D5 0.9 NS 1,000 ML IV SCH ×2 (00:32→05:46)
[2018-02-03] MEDS: KETOROLAC 30 MG/ML INJ IV PRN (04:12)
[2018-02-03 06:26] LABS: Absolute Monocytes 0.9 K/uL (0.1-1.3); Absolute Neutrophil 1.3 K/uL (1.8-8.0); Basophils % 0.8 % (0-1.3); Eosinophils % 0.8 % (0-4.4); Hematocrit 32.8 % (36.0-45.0); Lymphocytes % 46.7 % (15.3-44.8); MCH 33.6 pg (27.0-35.0); MCV 97.6 fL (80-100); MPV 6.6 fL (7.6-11.3); Monocytes % 22.1 % (3.3-12.3); RBC Red Blood Cell Count 3.36 M/uL (3.86-4.86)
[2018-02-03 06:36] LABS: Magnesium 2.1 mg/dL (1.8-2.4); Potassium 3.6 mmol/L (3.5-5.1)
[2018-02-03 07:41] LABS: Blood Morphology Comment NOT SEEN (NOT SEEN); Platelet Estimate ADEQ
[2018-02-03] MEDS: ENOXAPARIN 40 MG/0.4 ML SQ SCH (08:34)
[2018-02-03] MEDS: FLUOXETINE 20 MG CAP PO SCH (08:35)
[2018-02-03] MEDS: GUAIFENESIN 600 MG SA TAB PO SCH (08:35)
[2018-02-03] MEDS: PANTOPRAZOLE 40MG TABLET PO SCH (08:35)
[2018-02-03] MEDS: LIPASE/PROTEASE/AMYLASE CAP PO SCH ×2 (08:36→12:32)
[2018-02-03] MEDS: Levofloxacin500mg IV 500 MG/100 ML BAG IV SCH (08:36)
[2018-02-03] MEDS: NICOTINE 21 MG/PAT TD SCH (08:36)
--- NOTE | 2018-02-03 08:57 | RAD REPORT ---
EXAM DESCRIPTION: Tory Rod (2 Views)02/03/2018 6:14 am CLINICAL HISTORY: Cough COMPARISON: February 02 2018 FINDINGS: The lungs appear clear of acute infiltrate. The heart is normal size IMPRESSION: No acute abnormalities displayed
[2018-02-03] MEDS ORDERED: POTASSIUM 25 MEQ EFFERV TAB PO ONE (09:00)
[2018-02-03] MEDS: TRAMADOL HCL 50 MG TAB PO PRN ×2 (09:09→14:05)
[2018-02-03] MEDS: ONDANSETRON 4 MG/2 ML VIAL IV PRN ×2 (09:10→14:06)
--- NOTE | 2018-02-03 11:29 | P.DS ---
Admission Date: 02/02/18 Discharge Date: 02/03/18 Primary Care Provider: none; DESI-Dr. Chang Disposition: ROUTINE DISCHARGE Discharge Condition: GOOD Reason for Admission: chest pain Consultations: None Procedures: CT chest: COMPARISON: 2013 TECHNIQUE: Dynamically enhanced axial 3 mm thick images of the chest were obtained during administration of <100> mL Isovue 370 IV contrast. Coronal and oblique reconstruction images were generated and reviewed. Exam utilizes a protocol for optimal evaluation of pulmonary arterial tree.Preliminary report generated by virtual radiologic and reviewed prior to dictation Maximum intensity projections 3D imaging was utilized All CT scans are performed using dose optimization technique as appropriate and may include automated exposure control or mA/KV adjustment according to patient size. FINDINGS: A pulmonary embolus is not seen. A thoracic aortic aneurysm is not noted. A pleural effusion is not seen. A pericardial effusion is not seen. 2 x 0.7 centimeter ground-glass opacities left upper lobe 16 millimeter right thyroid nodule unchanged. Liver has diminished attenuation consistent with fatty infiltration. There additional ill-defined low density areas within the left lobe probably representing an additional fatty infiltration. Inflammation neoplasm can also have this appearance but is less likely. This could be further evaluated with MRI A small hiatal hernia. Thickening of the wall of the distal esophagus may indicate inflammation IMPRESSION: Negative for a pulmonary embolism. Small ground-glass opacities left upper lobe may represent an area of pneumonitis or infection Follow up CXR: COMPARISON: February 02 2018 FINDINGS: The lungs appear clear of acute infiltrate. The heart is normal size IMPRESSION: No acute abnormalities displayed Medical problem list: Left upper lobe pneumonia with dehydration, hypokalemia, hypoglycemia and poor oral intake Fatty liver GERD with hiatal hernia Hyperlipidemia Depression Recent hospitalization for acute on chronic pancreatitis 16 mm right thyroid nodule Brief History of Present Illness: 53-year-old female presented emergency room with increased cough and congestion. Patient recently hospitalized for acute on chronic pancreatitis. Patient found to have pneumonia. Patient was admitted for treatment. Hospital Course: Patient presented with Left upper lobe pneumonia along with dehydration, hypokalemia, hypoglycemia and poor oral intake. CT scan revealed no pulmonary embolism. Patient received IV fluids and antibiotic therapy. Patient did well during her stay. Oxygen was able to be weaned off. Repeat x-ray shows resolution. Hypoglycemia resolved with good oral intake. At discharge she will continue with Levaquin 500 mg daily for 7 days. Patient will continue with incentive spirometer, ambulation and oral intake. Recommendation to recheck chest x-ray in 2-4 weeks to monitor resolution. Patient will be provided Mucinex 1 pill twice daily for congestion and Tessalon Perles 100 mg 3 times a day as needed for cough. Recommendation to recheck lab-BMP in 1 week. Patient has fatty liver. Patient to continue with lifestyle modification education. Patient will follow up with GI as an outpatient to further address. Patient has GERD with hiatal hernia. Patient will continue with Protonix 40 mg 1 pill once daily. Patient to follow up with GI as an outpatient to further address. Patient has hyperlipidemia. Patient will continue with lifestyle modification education. Recommendation to recheck lab-fasting lipid panel in 4-6 weeks. If abnormal at that time patient may require medication. Patient has depression. Patient will continue with Prozac daily. Patient recently hospitalized for acute on chronic pancreatitis. This was likely related to alcohol. Patient without symptoms at this time. Patient will need a follow up with GI in 2-4 weeks to monitor her progress. Patient will continue with Creon with meals. Patient may use tramadol 50 mg 3 times a day as needed for pain. This was provided on her previous hospitalization. CT scan revealed 16 mm right thyroid nodule. This has unchanged from prior CT scan. Recommendations is for the patient to follow up with her PCP to further evaluate and monitor. Dedicated thyroid ultrasound may be required. Vital Signs/Physical Exam: Temp Pulse Resp BP Pulse Ox 97.7 F 79 16 149/86 H 99 02/03/18 08:00 02/03/18 08:00 02/03/18 08:00 02/03/18 08:00 02/03/18 08:00 General: Alert, In no apparent distress, Oriented x3, Cooperative HEENT: Atraumatic Neck: Supple Respiratory: Clear to auscultation bilaterally, Normal air movement Cardiovascular: Normal pulses, Regular rate/rhythm Gastrointestinal: Normal bowel sounds, Soft and benign, Non-distended, No tenderness, No masses, No rebound, No guarding Musculoskeletal: No erythema, No tenderness, No warmth Integumentary: No tenderness/swelling, No erythema, No warmth, No cyanosis Neurological: Normal speech, Normal strength at 5/5 x4 extr, Normal tone, Normal affect Lymphatics: No axilla or inguinal lymphadenopathy Laboratory Data at Discharge: WBC 4.3 K/uL (4.3-10.9) D 02/03/18 05:51 Hgb 11.3 g/dL (12.0-15.0) L D 02/03/18 05:51 Hct 32.8 % (36.0-45.0) L D 02/03/18 05:51 Plt Count 333 K/uL (152-406) D 02/03/18 05:51 Sodium 133 mmol/L (136-145) L 02/03/18 05:51 Potassium 3.6 mmol/L (3.5-5.1) 02/03/18 05:51 BUN 12 mg/dL (7-18) 02/03/18 05:51 Creatinine 0.70 mg/dL (0.55-1.3) 02/03/18 05:51 Glucose 98 mg/dL (74-106) 02/03/18 05:51 Magnesium 2.1 mg/dL (1.8-2.4) 02/03/18 05:51 Total Bilirubin 0.4 mg/dL (0.2-1.0) 02/02/18 02:00 AST 97 U/L (15-37) H 02/02/18 02:00 ALT 64 U/L (12-78) 02/02/18 02:00 Alkaline Phosphatase 113 U/L (45-117) 02/02/18 02:00 Troponin I < 0.02 ng/mL (0.0-0.045) 02/02/18 12:57 Lipase 153 U/L (73-393) 02/02/18 02:00 Home Medications: Fluoxetine HCl [Prozac*] 20 mg PO DAILY 03/01/13 Lipase/Protease/Amylase [Creon Dr 12,000 Units Capsule] 1 cap PO ACHS #90 cap Pantoprazole [Protonix Tab*] 40 mg PO DAILYAC #30 tab 01/30/18 Benzonatate [Tessalon Perle] 100 mg PO TID PRN #10 cap 02/03/18 Guaifenesin [Mucinex] 600 mg PO BID PRN #10 tab.er.12h 02/03/18 levoFLOXacin [Levaquin] 500 mg PO DAILY #7 tab 02/03/18 New Medications: Benzonatate [Tessalon Perle] 100 mg PO TID PRN #10 cap PRN Reason: Cough Guaifenesin [Mucinex] 600 mg PO BID PRN #10 tab.er.12h PRN Reason: Cough levoFLOXacin [Levaquin] 500 mg PO DAILY #7 tab Patient Discharge Instructions: 1. Patient will follow up with her PCP in 1 week to follow up this hospitalization. 2. Patient presented with Left upper lobe pneumonia along with dehydration, hypokalemia, hypoglycemia and poor oral intake. CT scan revealed no pulmonary embolism. Patient received IV fluids and antibiotic therapy. Patient did well during her stay. Oxygen was able to be weaned off. Repeat x-ray shows resolution. Hypoglycemia resolved with good oral intake. At discharge she will continue with Levaquin 500 mg daily for 7 days. Patient will continue with incentive spirometer, ambulation and oral intake. Recommendation to recheck chest x-ray in 2-4 weeks to monitor resolution. Patient will be provided Mucinex 1 pill twice daily for congestion and Tessalon Perles 100 mg 3 times a day as needed for cough. Recommendation to recheck lab-BMP in 1 week. 3. Patient has fatty liver. Patient to continue with lifestyle modification education. Patient will follow up with GI as an outpatient to further address. 4. Patient has GERD with hiatal hernia. Patient will continue with Protonix 40 mg 1 pill once daily. Patient to follow up with GI as an outpatient to further address. 5. Patient has hyperlipidemia. Patient will continue with lifestyle modification education. Recommendation to recheck lab-fasting lipid panel in 4-6 weeks. If abnormal at that time patient may require medication. 6. Patient has depression. Patient will continue with Prozac daily. 7. Patient recently hospitalized for acute on chronic pancreatitis. This was likely related to alcohol. Patient without symptoms at this time. Patient will need a follow up with GI in 2-4 weeks to monitor her progress. Patient will continue with Creon with meals. Patient may use tramadol 50 mg 3 times a day as needed for pain. This was provided on her previous hospitalization. 8. CT scan revealed 16 mm right thyroid nodule. This has unchanged from prior CT scan. Recommendations is for the patient to follow up with her PCP to further evaluate and monitor. Dedicated thyroid ultrasound may be required. Diet: GI soft diet Activity: Ad poornima Time spent managing pt's care (in minutes): 55
[2018-02-03 12:48] VITALS: O2SAT 97
[2018-02-03 12:50] VITALS: BP 133/83; TEMP 96.8
--- NOTE | 2018-02-03 15:37 | ECHO ---
HEIGHT: 5 ft 1 in WEIGHT: 141 lb 1.6 oz DATE OF STUDY: 02/03/[address]: Luis E Stratton DO 2-DIMENSIONAL: YES M.MODE: YES DOPPLER: YES COLOR FLOW: YES TDS: NO PORTABLE: NO DEFINITY: NO BUBBLE STUDY: NO DIAGNOSIS: SHORTNESS OF BREATH, CHEST PAIN, PNEUMONIA CARDIAC HISTORY: CATHERIZATION: NO SURGERY: NO PROSTHETIC VALVE: NO PACEMAKER: NO MEASUREMENTS (cm) DIASTOLIC (NORMALS) SYSTOLIC (NORMALS) IVSd 0.7 (0.6-1.2) LA Diam 2.9 (1.9-4.0) LVEF 76% LVIDd 4.6 (3.5-5.7) LVIDs 2.6 (2.0-3.5) %FS 45% LVPWd 0.9 (0.6-1.2) Ao Diam 3.1 (2.0-3.7) 2 DIMENSIONAL ASSESSMENT: RIGHT ATRIUM: NORMAL LEFT ATRIUM: NORMAL RIGHT VENTRICLE: NORMAL LEFT VENTRICLE: NORMAL TRICUSPID VALVE: NORMAL MITRAL VALVE: NORMAL PULMONIC VALVE: NORMAL AORTIC VALVE: NORMAL PERICARDIAL EFFUSION: NONE AORTIC ROOT: NORMAL LEFT VENTRICULAR WALL MOTION: DOPPLER/COLOR FLOW: TRACE MITRAL AND TRICUSPID REGURGITATION. NORMAL RIGHT VENTRICULAR SYSTOLIC PRESSURE. COMMENTS: NORMAL 2D ECHOCARDIOGRAM. TRACE MITRAL AND TRICUSPID REGURGITATION. TECHNOLOGIST: Zia SUTHERLAND
== END 2018-02-03 15:02 | disposition home or self-care (01) ==
LOC: ER 01:26 → ERHOLD 04:04 → 4TH 05:46
PROVIDERS: ADMIT Internal Medicine; ATTEND Internal Medicine
DX: J18.9 Pneumonia, unspecified organism (principal); E86.0 Dehydration; E87.6 Hypokalemia; K76.0 Fatty (change of) liver, not elsewhere classified; K21.9 Gastro-esophageal reflux disease without esophagitis; K44.9 Diaphragmatic hernia without obstruction or gangrene; E78.5 Hyperlipidemia, unspecified; F32.9 Major depressive disorder, single episode, unspecified; E04.1 Nontoxic single thyroid nodule; E16.2 Hypoglycemia, unspecified
CPT/HCPCS: 36415; 71045; 71046; 71275; 80048; 80076; 81003; 82553; 82962; 83690; 83735; 84132; 84145; 84484; 85025; 85379; 87070; 87081; 87804; 93005; 93306; 96361; 96365; 96366; 96375; 99285; G0378; J1650; J2405; J2550; J3475; J7030; Q9967